=== PATIENT | male | born 1960 | race Caucasian/White ===

== ENCOUNTER 2018-07-15 16:56 | Inpatient (IN) | payer MEDICARE, MEDICAID ==
[~2018-07-15] VITALS: Ht 180.3 cm; Wt 68.9 kg
--- NOTE | 2018-07-15 17:45 | NUR ---
PT BIB PA SENT BY DR GUTIERREZ FOR ASSESSMENT OF ALTERED MENTAL STATUS FOR UNKNOWN PERIOD OF TIME, WITH REPORTS OF RECURRENT UTI'S. CURRENTLY HAS NO PHYSICAL COMPLAINTS. CALM, COOPERATIVE. A/OX2 PRESENTLY. RESP EVEN UNLABORED. SKIN WARM DRY. IN ER BED 02.
[2018-07-15] MEDS ORDERED: SENN-168 PO (17:56)
[2018-07-15] MEDS ORDERED: ATOR10TA PO (17:56)
[2018-07-15] MEDS ORDERED: GABA-532 PO (17:56)
[2018-07-15] MEDS ORDERED: NA P133E RC (17:56)
[2018-07-15] MEDS ORDERED: DIVA-78 PO (17:56)
[2018-07-15] MEDS ORDERED: SPIR25TA PO (17:56)
[2018-07-15] MEDS ORDERED: ACET325T53 PO (17:56)
[2018-07-15] MEDS ORDERED: DOCU100C36 PO (17:56)
[2018-07-15] MEDS ORDERED: BISA10SU61 RC (17:56)
[2018-07-15] MEDS ORDERED: VITA1TAB18 PO (17:56)
[2018-07-15] MEDS ORDERED: OLAN10TA3 PO (17:56)
[2018-07-15] MEDS ORDERED: MAGN400O6 PO (17:56)
[2018-07-15] MEDS ORDERED: CYPR4TAB44 PO (17:56)
[2018-07-15] MEDS ORDERED: LISI2.5T2 PO (17:56)
[2018-07-15] MEDS ORDERED: OMEG1CAP PO (17:56)
[2018-07-15] MEDS ORDERED: LEVE100S PO (17:56)
[2018-07-15] MEDS ORDERED: RISP3TAB5 PO (17:56)
[2018-07-15] MEDS ORDERED: CHOL100044 PO (17:56)
[2018-07-15] MEDS ORDERED: LORA-259 PO (17:56)
[2018-07-15] MEDS ORDERED: LIDOCAINE 2% JEL UROJET 10 ML MM ONE ×2 (17:58→18:00)
[2018-07-15 18:06] LABS: BASOPHILS % (AUTO) 0.5 % (0.0-2.0); EOSINOPHILS % (AUTO) 2.7 % (0.0-6.0); HEMATOCRIT 40 % (39-51); HEMOGLOBIN 12.6 g/dL (13.5-17.5); LYMPHOCYTES % (AUTO) 34.8 % (20.0-44.0); MEAN CORPUSCULAR HGB CONC 31 g/dl (31.0-36.0); MEAN CORPUSCULAR VOLUME 71 fL (80-96); MONOCYTES # (AUTO) 0.5 /CMM (0.1-1.30); MONOCYTES % (AUTO) 9.2 % (2.0-12.0); NEUTROPHILS # (AUTO) 2.9 /CMM (1.8-8.9); NEUTROPHILS % (AUTO) 52.8 % (43.0-81.0); PLATELET COUNT (AUTO) 224 /CMM (150-450); RDW COEFFICIENT OF VARIATION 14.1 (11.5-15.0); WHITE BLOOD COUNT (AUTO) 5.6 K/uL (4.3-11.0)
[2018-07-15 18:28] LABS: TROPONIN I < 0.017 ng/mL (0.00-0.056)
[2018-07-15 18:36] LABS: ALANINE AMINOTRANSFERASE 14 U/L (12-78); ALBUMIN 3.3 g/dL (3.4-5.0); ALKALINE PHOSPHATASE 49 U/L (46-116); ASPARTATE AMINOTRANSFERASE 5 U/L (15-37); BILIRUBIN,TOTAL 0.2 mg/dL (0.2-1.0); CARBON DIOXIDE 29 mmol/L (21-32); CHLORIDE 104 mmol/L (98-107); CREATININE 0.9 mg/dL (0.6-1.3); GLUCOSE 97 mg/dL (74-106); POTASSIUM 4.5 mmol/L (3.5-5.1); SODIUM SERUM 139 mmol/L (136-145); TOTAL PROTEIN, SERUM 7.6 g/dL (6.4-8.2); UREA NITROGEN, BLOOD 21 mg/dL (7-18)
--- NOTE | 2018-07-15 18:49 | NUR ---
RESTING QUIETLY, NAD NOTED, ALL NEEDS ATTENDED TO.
[2018-07-15 18:57] LABS: APPEARANCE,URINE Cloudy (CLEAR); BILIRUBIN,URINE Negative (NEGATIVE); BLOOD, URINE Trace-lysed Ery/uL (NEGATIVE); COLOR,URINE Yellow (YELLOW); KETONES,URINE Trace (NEGATIVE); LEUKOCYTE ESTERASE ,URINE Large (NEGATIVE); NITRITE, URINE Negative (NEGATIVE); PH,URINE 6.5 (5.0-8.0); PROTEIN,URINE Negative (NEGATIVE); UGLUCOSE Negative (NEGATIVE); UROBILINOGEN,URINE 0.2 EU/dL (0.2)
[2018-07-15 19:03] LABS: BACTERIA,URINE Many /HPF (None Seen); RBC,URINE 0-2 /HPF (0-2); SQUAMOUS EPITHELIAL CELL,UR Few /HPF (None Seen); WBC,URINE TOO NUMEROUS TO COUN /HPF (0-3)
[2018-07-15] MEDS ORDERED: LEVOFLOXACIN 750 MG /D5W 150ML 750 MG in PREMIX 1 EA IV SCH (19:30)
--- NOTE | 2018-07-15 19:38 | NUR ---
CALLED NURSING AND REQUESTED A MED SURG BED
--- NOTE | 2018-07-15 19:42 | NUR ---
REPORT GIVEN TO JACKIE HENDRICKSON FOR BUNNY
[2018-07-15] MEDS ORDERED: LEVOFLOXACIN 750 MG /D5W 150ML 150 ML IV ONE (20:16)
--- NOTE | 2018-07-15 20:16 | NUR ---
PT IS ASSIGNED TO MED SURG RM#: [id number], DX: ISREAL, AND ACCEPTING: DR GUTIERREZ.
--- NOTE | 2018-07-15 20:43 | NUR ---
REPORT GIVEN TO GRISEL HENDRICKSON FOR CONTINUATION OF CARE.
[2018-07-15 21:30] VITALS: BP 97/70
[2018-07-15] MEDS ORDERED: ACETAMINOPHEN 650 MG/SUPP.RECT RC PRN (22:00)
[2018-07-15] MEDS ORDERED: ONDANSETRON HCL/PF 4 MG/2 ML VIAL IV PRN (22:00)
[2018-07-15] MEDS ORDERED: ACETAMINOPHEN 325 MG TABLET PO PRN (22:00)
[2018-07-15] MEDS: IV D5/ 0.9% NACL 1,000 ML IV SCH (22:19)
--- NOTE | 2018-07-16 07:10 | NUR ---
MS/RN OPENING NOTE PATIENT IS RECEIVED IN BED AWAKE. ALERT AND ORIENTED X1. DENIES SOB. RESPIRATION REGULAR AND UNLABORED. DENIES PAIN. PATIENT IN NO APPARENT DISTRESS. RIGHT ARM G 22 PATENT AND IV FLUID INFUSING AT 100ML/HR. NO S/S INFILTRATION NOTED. BED LOW AND LOCKED. SIDE RAILS UP X3. CALL LIGHT WITHIN REACH. WILL CONTINUE TO MONITOR.
[2018-07-16 07:43] LABS: BASOPHILS % (AUTO) 0.2 % (0.0-2.0); EOSINOPHILS % (AUTO) 3.9 % (0.0-6.0); HEMATOCRIT 37 % (39-51); HEMOGLOBIN 11.6 g/dL (13.5-17.5); LYMPHOCYTES # (AUTO) 1.8 /CMM (0.8-4.8); MEAN CORPUSCULAR HGB CONC 31 g/dl (31.0-36.0); MEAN CORPUSCULAR VOLUME 73 fL (80-96); MONOCYTES # (AUTO) 0.6 /CMM (0.1-1.30); NEUTROPHILS % (AUTO) 53.9 % (43.0-81.0); PLATELET COUNT (AUTO) 178 /CMM (150-450); RDW COEFFICIENT OF VARIATION 15.5 (11.5-15.0); RED BLOOD CELL COUNT(AUTO) 5.05 MIL/uL (4.5-6.0); WHITE BLOOD COUNT (AUTO) 5.5 K/uL (4.3-11.0)
[2018-07-16 07:50] LABS: CALCIUM, SERUM 8.3 mg/dL (8.5-10.1); CREATININE 0.9 mg/dL (0.6-1.3); PHOSPHORUS 2.7 mg/dL (2.5-4.9); POTASSIUM 3.9 mmol/L (3.5-5.1)
[2018-07-16] MEDS: PANTOPRAZOLE 40 MG TABLET.DR PO SCH (07:55)
[2018-07-16 08:00] VITALS: BP 116/70
[2018-07-16] MEDS: IV D5/ 0.9% NACL 1,000 ML IV SCH ×2 (08:03→17:47)
[2018-07-16] MEDS: ENOXAPARIN SODIUM 40 MG/0.4 ML DISP.SYRIN SQ SCH (09:58)
--- NOTE | 2018-07-16 12:08 | NUR ---
MS/RN NOTE ASKED DR GUTIERREZ TO CHANGE THE DIET ORDER FROM MECHANICAL SOFT TO PUREED DIET DUE TO PATIENT HAVING NO TEETH AND PREVENTING ASPIRATION. RECEIVED NEW ORDER FOR PUREED DIET. THE ORDER IS READ BACK, VERIFIED. NOTED AND CARRIED OUT.
[2018-07-16] MEDS ORDERED: Medication Not On Formulary EA (Omega-3 Fatty Acids/Fish Oil (Fish Oil 1,000 Mg Capsule) PO SCH (12:30)
[2018-07-16] MEDS ORDERED: MAGNESIUM HYDROXIDE 30 ML UDC PO PRN (12:30)
[2018-07-16] MEDS ORDERED: BISACODYL SUPP (10 MG) 10 MG/SUPP.RECT SUPP.RECT RC PRN (12:30)
[2018-07-16] MEDS ORDERED: NA PHOS,M-B/NA PHOS,DI-BA 1 EA ENEMA RC PRN (12:30)
[2018-07-16] MEDS ORDERED: ACETAMINOPHEN 325 MG TABLET PO PRN (12:30)
[2018-07-16 12:33] LABS: IRON, SERUM 108 ug/dl (50-175); TOTAL IRON BINDING CAPACITY 209 ug/dl (250-450)
[2018-07-16] MEDS: GABAPENTIN 100 MG CAPSULE PO SCH ×2 (13:19→16:49)
[2018-07-16] MEDS: DIVALPROEX SODIUM 125 MG TABLET.DR PO SCH ×2 (13:20→16:49)
--- NOTE | 2018-07-16 13:29 | NUR ---
MS/RN NOTE PERIACTIN 4MG DELIVERED YET. FOLLOW UP CALL TO PHARMACY IS MADE. WILL CONTINUE TO FOLLOW UP AND ADMINISTER ONCE THE MEDICATION IS DELIVERED.
[2018-07-16 14:00] VITALS: BP 126/70
[2018-07-16] MEDS: CYPROHEPTADINE HCL 4 MG TABLET PO SCH ×2 (15:57→16:50)
[2018-07-16 15:59] VITALS: BP 100/65
[2018-07-16] MEDS: SENNOSIDES 8.6 MG TABLET PO SCH (16:49)
[2018-07-16] MEDS: LORAZEPAM 0.5 MG TABLET PO SCH (16:50)
--- NOTE | 2018-07-16 18:45 | NUR ---
MS/RN CLOSING NOTE PATIENT ALERT AND ORIENTED X1. REDIRECTION AND REORIENTATION PROVIDED NEEDED. DENIES SOB. RESPIRATION REGULAR AND UNLABORED. DENIES PAIN. PATIENT IN NO APPARENT DISTRESS. RIGHT FOREARM G 20 PATENT AND IV FLUID INFUSING WITH NO S/S INFILTRATION. LEFT FOREARM G 24 PATENT AND SALINE LOCKED. BED LOW AND LOCKED. SIDE RAILS UP X3. BED ALARM ON. WILL CONTINUE TO MONITOR.
[2018-07-16 20:00] VITALS: BP 95/56
--- NOTE | 2018-07-16 20:00 | NUR ---
MS ANIMAL ANATOMY TEACHER NOTES RECEIVED REPORT WHILE DOING ROUNDS AND SEEN PT RESTING AT THIS TIME WITH EYES CLOSED BUT AROUSE TO TOUCH, NO SIGNS OF ANY ACUTE DISTRESS NOTED. RESPIRATION EVEN AND NON-LABORED WITH IVF OF D5NS AT 100ML/HR INFUSING ON HIS RIGHT FOREARM COVERED WITH KERLIX. SKIN WARM AND DRY TOUCH HIM WARM AND COMFORTABLE AT ALL TIMES. BED ALARM SET FOR SAFETY AND PLACE CALL LIGHT AT REACH. WILL CONTINUE TO MONITOR.
[2018-07-16] MEDS: risperiDONE 1 MG TABLET PO SCH (21:17)
[2018-07-16] MEDS: LEVETIRACETAM SOL (5 ML) 100 MG/ML UDC PO SCH (21:17)
[2018-07-16] MEDS: LISINOPRIL (5MG) 5 MG TABLET PO SCH (21:18)
[2018-07-16] MEDS: ATORVASTATIN 10 MG TABLET PO SCH (21:22)
[2018-07-16] MEDS: MUPIROCIN OINT 2% 22 GM TUBE SCH (21:23)
--- NOTE | 2018-07-16 22:00 | NUR ---
MS LIVESTOCK LABORER NOTES SEEN PT COVERED HIS FACE WITH A BLANKET AND BUT WHEN YOU CALLED HIS NAME AND ASKED HIM TO OPEN IT HE FOLLOWED INSTRUCTION BUT NOTICED NEEDS TO RE-ORIENTED WHERE HE AT WHAT MEDICATION THAT I WILL GIVE IT TO HIM. PT JUST LOOKED AT ME AND HE SCREAM LIKE A LITTLE BOY BUT HE TOOK HIS MEDICATION WITH APPLE SAUCE AND DRINK WITH WATER. PT TOLERATED WELL NO ASPIRATION NOTED. AFTER THAT HE COVERED HIS FACE AGAIN WITH BLANKET . KEPT HIM ON SMEI FOWLERS POSITION WITH SIDE RAILS UP. BED ALARM SET FOR SAFETY.
[2018-07-16] MEDS: LEVOFLOXACIN 750 MG /D5W 150ML 750 MG in PREMIX 1 EA IV SCH (22:25)
--- NOTE | 2018-07-17 | NUR ---
CONTINUITY MANAGER NOTES PT SLEEPING COMFORTABLY IN BED WITHOUT ANY ACUTE DISTRESS NOTED. IVF STILL INFUSING. WILL CONTINUE MONITORING.
[2018-07-17] MEDS: IV D5/ 0.9% NACL 1,000 ML IV SCH ×2 (05:12→16:02)
--- NOTE | 2018-07-17 05:25 | NUR ---
RESTORATION ECOLOGIST NOTES PT REMAINS RESTING , RESPIRATION EVEN AND NON -LABORED. NOT IN ANY ACUTE DISTRESS NOTED. WILL CONTINUE MONITORING. PLACE CALL LIGHT AT REACH.
[2018-07-17 07:17] LABS: BASOPHILS % (AUTO) 0.2 % (0.0-2.0); HEMATOCRIT 35 % (39-51); HEMOGLOBIN 11.3 g/dL (13.5-17.5); LYMPHOCYTES # (AUTO) 2.1 /CMM (0.8-4.8); MEAN CORPUSCULAR HGB CONC 33 g/dl (31.0-36.0); MEAN CORPUSCULAR VOLUME 70 fL (80-96); MONOCYTES # (AUTO) 0.5 /CMM (0.1-1.30); MONOCYTES % (AUTO) 11.7 % (2.0-12.0); NEUTROPHILS # (AUTO) 1.9 /CMM (1.8-8.9); NEUTROPHILS % (AUTO) 40.1 % (43.0-81.0); PLATELET COUNT (AUTO) 151 /CMM (150-450); RED BLOOD CELL COUNT(AUTO) 4.92 MIL/uL (4.5-6.0); WHITE BLOOD COUNT (AUTO) 4.7 K/uL (4.3-11.0)
--- NOTE | 2018-07-17 07:19 | NUR ---
MS RN OPENING NOTES RECEIVED PATIENT ASLEEP IN BED, EASILY AWAKENS. HOB ELEVATED. ON ROOM AIR, BREATHING EVEN AND UNLABORED. IV ACCESS ON LEFT FA INTACT AND PATENT, IVF OF D5 NS @ 100MLNO SIGNS OF REDNESS OR INFILTRATIONS AT SITE NOTED. BED IN LOW/LOCKED POSITION WITH SR UP X2. CALL LIGHT IN REACH. WILL CONTINUE TO MONITOR.
[2018-07-17 07:23] LABS: CALCIUM, SERUM 8.2 mg/dL (8.5-10.1); CREATININE 0.9 mg/dL (0.6-1.3); POTASSIUM 4.4 mmol/L (3.5-5.1)
--- NOTE | 2018-07-17 07:23 | NUR ---
MS ESTIMATING MANAGER CLOSING NOTES PT REMAINS SLEEPING BUT AROUSABLE TO TOUCH. IVF STILL INFUSING ON HIS LEFT FOREARM PATENT AND INTACT. NOS NO SIGNS OF ANY ACUTE DISTRESS NOTED. ALL DUE MEDS GIVEN AND ALL NEEDS MET. STABLE ROBYN THE NIGHT AND SLEPT WELL. KEPT HIM WARM AND COMFORTABLE AT ALL TIMES. BED ALARMS SET FOR PT SAFETY. ENDORSE TO AM NURSE FOR CONTINUITY OF CARE. PLACE CALL LIGHT AT REACH.
[2018-07-17] MEDS: PANTOPRAZOLE 40 MG TABLET.DR PO SCH (07:55)
[2018-07-17] MEDS: LEVETIRACETAM SOL (5 ML) 100 MG/ML UDC PO SCH ×2 (08:25→21:58)
[2018-07-17] MEDS: DIVALPROEX SODIUM 125 MG TABLET.DR PO SCH ×3 (08:25→16:28)
[2018-07-17] MEDS: DOCUSATE SODIUM 100 MG CAPSULE PO SCH (08:25)
[2018-07-17] MEDS: GABAPENTIN 100 MG CAPSULE PO SCH ×3 (08:25→16:28)
[2018-07-17] MEDS: CHOLECALCIFEROL 1,000 UNIT TABLET (VIT D3) PO SCH (08:25)
[2018-07-17] MEDS: ENOXAPARIN SODIUM 40 MG/0.4 ML DISP.SYRIN SQ SCH (08:26)
[2018-07-17 08:29] VITALS: BP 114/68
[2018-07-17] MEDS: CYPROHEPTADINE HCL 4 MG TABLET PO SCH ×3 (08:31→16:29)
[2018-07-17] MEDS: SENNOSIDES 8.6 MG TABLET PO SCH ×2 (08:31→16:28)
[2018-07-17] MEDS: MUPIROCIN OINT 2% 22 GM TUBE SCH ×2 (08:31→22:13)
[2018-07-17] MEDS: LORAZEPAM 0.5 MG TABLET PO SCH ×2 (08:31→16:28)
[2018-07-17] MEDS: OLANZAPINE 5 MG TABLET PO SCH (08:32)
[2018-07-17] MEDS: VITAMIN B COMP W-C 1 TAB TABLET PO SCH (08:32)
[2018-07-17] MEDS: SPIRONOLACTONE 25 MG TABLET PO SCH (08:32)
[2018-07-17 08:50] LABS: EOSINOPHILS % (MANUAL) 4 % (0-4); LYMPHOCYTES % (MANUAL) 48 % (16-48); MONOCYTES % (MANUAL) 12 % (0-11.0); NEUTROPHILS % (MANUAL) 36 (42-76)
[2018-07-17 16:09] VITALS: BP 96/57
--- NOTE | 2018-07-17 18:38 | NUR ---
MS RN CLOSING NOTES PATIENT AWAKE IN BED AND LYING AT MODERATE HIGH BACKREST POSITION AT THIS TIME. A/O X2. ABLE TO RESPOND VERBALLY AND OBEYS COMMANDS. NO SIGNIFICANT CHANGES IN STATUS NOTED THROUGHOUT THE DAY. ON ROOM AIR, TOLERATING WELL WITH NO SOB NOTED. IV ACCESS ON LEFT FA INTACT AND PATENT, IVF OF D5 NS @ 50 ML/HR INFUSING WELL, NO SIGNS OF REDNESS OR INFILTRATIONS AT SITE NOTED. ALL SAFETY MEASURES KEPT IN LACE. BED IN LOW/LOCKED POSITION WITH SR UP X2. CALL LIGHT IN REACH. ALL NEEDS AND CARE PROVIDED WELL. WILL ENDORSE TO BILLET BED OPERATOR NURSE FOR BUNNY.
[2018-07-17] MEDS: LEVOFLOXACIN 750 MG /D5W 150ML 750 MG in PREMIX 1 EA IV SCH (19:32)
--- NOTE | 2018-07-17 19:40 | NUR ---
RN INITIAL NOTES: RECEIVED REPORT FROM ANGEL HENDRICKSON. PT IN BED, AWAKE, A/O X1-2 ON RA RESPIRATION EVEN AND UNLABORED, NO FACIAL GRIMACE NOTED, IV ACCESS PATENT AND FLUSHING WELL INFUSING WITH D5NS AT 50ML/HR. BLE OFFLOADED. SUCTION SET UP SECURED, KEPT SIDE RAILS PADDED, PT ON SEIZURE PRECAUTION, SAFETY PRECAUTIONS FOR FALL INITIATED, CALL LIGHT IN REACH, WILL CONTINUE MONITORING PT.
[2018-07-17 20:00] VITALS: BP 100/63
--- NOTE | 2018-07-17 20:25 | NUR ---
RN NOTES: ASSISTED HOLTER TECHNICIAN IN CHANGING PT'S DIAPER, ASSESSED PT'S SKIN AND COCCYX AREA, NOTED POSSIBLE DTI BUT WITH INTACT SKIN, NOTED ABRASION, PT SKINNY/BONY, WASHED COCCYX AREA WITH SOAP AND PAT PAT DRY Z GUARD AND MEPILEX APPLIED, WILL ORDER [facility] MATTRESS.
[2018-07-17] MEDS: risperiDONE 1 MG TABLET PO SCH (21:58)
[2018-07-17] MEDS: ATORVASTATIN 10 MG TABLET PO SCH (21:59)
[2018-07-17] MEDS: LISINOPRIL (5MG) 5 MG TABLET PO SCH (22:00)
[2018-07-17 22:18] VITALS: BP 101/72
--- NOTE | 2018-07-18 | NUR ---
RN NOTES: NOTED ADMISSION PAPER WORKS/CHARTING/DOCUMENTATION WASN'T COMPLETED BY THE ADMITTING RN, INFORMED ACCOUNTS RECEIVABLE REPRESENTATIVE JOHANA, PER AUTO LOCATOR, IT NEEDS TO BE COMPLETED. COMPLETED ADMIT DOCUMENTATION, USING ALL PAPER WORKS OBTAINED FROM FACILITY
[2018-07-18] MEDS: Z GUARD REMEDY 4 OZ OINT TP PRN ×2 (05:47→20:30)
--- NOTE | 2018-07-18 06:32 | NUR ---
RN CLOSING NOTES: PT IN BED, AWAKE, REMAINS A/O X1-2, ON RA, NO EPISODE OF SEIZURE NOTED, DENIES ANY PAIN OR DIsCOMFORT AT THIS TIME. PT NOTED TO BE INTERMITTENTLY AGRRESSIVE, BUT CAN BE REDIRECTED. IV ACCESS ON LEFT FA REMAINS PATENT AND FLUSHING WELL, INFUSING WITH D5NS AT 50ML/HR. AWAITING DELIVERY OF [facility], WOUND CARE CONSULTED, VS REMAINS STABLE, NEEDS ATTENDED. BED ALARM SECURED, SAFETY PRECAUTIONS FOR FALL REMAINS ENGAGED, CALL LIGHT IN REACH, WILL ENDORSE TO DAY RN FOR BUNNY.
--- NOTE | 2018-07-18 07:20 | NUR ---
MS RN OPENING NOTE RECEIVED PATIENT IN BED. ALERT ORIENTED X1. ON ROOM AIR. TOLERATING WELL. IN NO APPARENT DISTRESS OR DISCOMFORT AT THIS TIME. RESPIRATIONS EVEN AND UNLABORED. DENIES PAIN AND SOB. PATIENT ABLE TO ANSWER TO BASIC QUESTIONS. IS INCONTINENT WITH USE OF DIAPER. ISOLATION PRECAUTIONS OBSERVED AT THE DOOR. SEIZURE PRECAUTIONS OBSERVED. LEFT FOREARM 24G IVC WITH FLUIDS RUNNING AT 50CC/HR. PATIENT KEPT CLEAN AND COMFORTABLE. ALL NEEDS ATTENDED. SAFETY MEASURES IN PLACE, BED IN LOW LOCKED POSITION, ALARM ON, SIDE RAILS UP X3, CALL LIGHT WITHIN EASY REACH. WILL CONTINUE TO MONITOR.
[2018-07-18 08:00] VITALS: BP 105/66
[2018-07-18] MEDS: GABAPENTIN 100 MG CAPSULE PO SCH ×3 (09:24→16:48)
[2018-07-18] MEDS: ENOXAPARIN SODIUM 40 MG/0.4 ML DISP.SYRIN SQ SCH (09:25)
[2018-07-18] MEDS: LEVETIRACETAM SOL (5 ML) 100 MG/ML UDC PO SCH ×2 (09:28→20:23)
[2018-07-18] MEDS: DOCUSATE SODIUM 100 MG CAPSULE PO SCH (09:46)
[2018-07-18] MEDS: SPIRONOLACTONE 25 MG TABLET PO SCH (09:54)
[2018-07-18] MEDS: SENNOSIDES 8.6 MG TABLET PO SCH ×2 (09:54→16:48)
[2018-07-18] MEDS: VITAMIN B COMP W-C 1 TAB TABLET PO SCH (09:54)
[2018-07-18] MEDS: DIVALPROEX SODIUM 125 MG TABLET.DR PO SCH ×3 (09:55→16:48)
[2018-07-18] MEDS: CHOLECALCIFEROL 1,000 UNIT TABLET (VIT D3) PO SCH (09:55)
[2018-07-18] MEDS: OLANZAPINE 5 MG TABLET PO SCH (09:55)
[2018-07-18] MEDS: PANTOPRAZOLE 40 MG TABLET.DR PO SCH (09:55)
[2018-07-18] MEDS: LORAZEPAM 0.5 MG TABLET PO SCH ×2 (09:56→16:48)
[2018-07-18] MEDS: CYPROHEPTADINE HCL 4 MG TABLET PO SCH ×3 (09:58→16:48)
[2018-07-18] MEDS: MUPIROCIN OINT 2% 22 GM TUBE SCH ×2 (09:58→20:31)
[2018-07-18 16:00] VITALS: BP 111/68
--- NOTE | 2018-07-18 19:02 | NUR ---
MS RN CLOSING NOTE PATIENT IN BED. ALERT ORIENTED X1. ON ROOM AIR. TOLERATING WELL. IN NO APPARENT DISTRESS OR DISCOMFORT AT THIS TIME. RESPIRATIONS EVEN AND UNLABORED. DENIES PAIN AND SOB. PATIENT ABLE TO ANSWER TO BASIC QUESTIONS. IS INCONTINENT WITH USE OF DIAPER. ISOLATION PRECAUTIONS OBSERVED AT THE DOOR. SEIZURE PRECAUTIONS OBSERVED. LEFT FOREARM 24G IVC WITH FLUIDS RUNNING AT 50CC/HR. PATIENT KEPT CLEAN AND COMFORTABLE. ALL ORDERS RENDERED. ALL NEEDS ATTENDED. SAFETY MEASURES IN PLACE, BED IN LOW LOCKED POSITION, ALARM ON, SIDE RAILS UP X3, CALL LIGHT WITHIN EASY REACH. WILL ENDORSE TO PM NURSE FOR BUNNY.
--- NOTE | 2018-07-18 19:50 | NUR ---
RN INITIAL NOTES: RECEIVED REPORT FROM OSVALDO HENDRICKSON. PT IN BED, AWAKE, CONFUSED, A/O X1, ON RA RESPIRATION EVEN AND UNLABORED. PT ON MRSA NARES ISOLATION AND VRE HISTORY. PT PULLED OUT HIS IV ACCESS, WILL INSERT ANOTHER ONE AFTER REPORT CHANGE, ON SEIZURE PRECAUTIONS, ASPIRATION PRECAUTIONS, KEPT SIDE RAILS PADDED AND SUCTION SET UP SECURED, PT NOW ON [facility] MATTRESS, BLE OFFLOADED. SAFETY PRECAUTIONS FOR FALL INITIATED, CALL LIGHT IN REACH, WILL CONTINUE MONITORING PT.
[2018-07-18 20:00] VITALS: BP 105/66
[2018-07-18] MEDS ORDERED: LEVOFLOXACIN (750 MG) 750 MG TABLET PO SCH (20:00)
--- NOTE | 2018-07-18 20:30 | NUR ---
RN NOTES: RESTARTED NEW IV ACCESS ON RFA G 22, WITH GOOD BLOOD RETURN NOTED, SURED WITH TEGADERM AND PROPERLY LABELED.
[2018-07-18] MEDS: ATORVASTATIN 10 MG TABLET PO SCH (21:30)
[2018-07-18] MEDS: risperiDONE 1 MG TABLET PO SCH (21:30)
[2018-07-18 21:47] VITALS: BP 119/48
[2018-07-18] MEDS: LISINOPRIL (5MG) 5 MG TABLET PO SCH (21:47)
--- NOTE | 2018-07-19 06:30 | NUR ---
RN NOTES: SONYA ANTHONY AND ASSIGNED RN PROVIDED BED BATH TO THE PT FOR THE 4TH TIME PT PLAYED WITH HIS BOWEL MOVEMENT. SACRAL COCCYX AREA APPLIED WITH Z GUARD AND MEPILEX.
--- NOTE | 2018-07-19 06:37 | NUR ---
RN NOTES: STARTED NEW IV ACCESS ON RIGHT WRIST USING G24, PT PULLED OUT AGAIN HIS PREVIOUS IV. GOOD BLOOD RETURN NOTED. NEW IV ACCESS SECURED WITH CLEAR TEGADERM DRESSING WITH PROPER LABELS. COVERED WITH KERLIX AND BROWN SLEEVE. PT ALSO HAS TOTAL OF 4 EPISODE OF SOFT MUSHY BM, NOT LIQUID OR LOOSE.
--- NOTE | 2018-07-19 06:43 | NUR ---
RN CLOSING NOTES: PT IN BED, SLEEPING, REMAINS A/O X1-2, ON RA, ,NO FACIAL GRIMACE NOTED, APPEARS CALM AND COMFORTABLE, NO EPISODE OF SEIZURE NOTED. PT CAN BE REDIRECTED. IV ACCESS ON RIGHT WRIST REMAINS PATENT AND FLUSHING WELL, ON HL, COVERED WITH KERLIX FOR SAFETY. FOR WOUND CARE CONSULT, VS REMAINS STABLE, NEEDS ATTENDED. BED ALARM SECURED, SAFETY PRECAUTIONS FOR FALL REMAINS ENGAGED, CALL LIGHT IN REACH, WILL ENDORSE TO DAY RN FOR BUNNY.
--- NOTE | 2018-07-19 07:20 | NUR ---
MS RN OPENING NOTE RECEIVED PATIENT IN BED. ALERT ORIENTED X1. ON ROOM AIR. TOLERATING WELL. IN NO APPARENT DISTRESS OR DISCOMFORT AT THIS TIME. RESPIRATIONS EVEN AND UNLABORED. DENIES PAIN AND SOB. PATIENT ABLE TO ANSWER TO BASIC QUESTIONS. IS INCONTINENT WITH USE OF DIAPER. ISOLATION PRECAUTIONS OBSERVED AT THE DOOR. SEIZURE PRECAUTIONS OBSERVED. RIGHT WRIST 24G IVC SL, PATENT AND INTACT. PATIENT KEPT CLEAN AND COMFORTABLE. ALL NEEDS ATTENDED. SAFETY MEASURES IN PLACE, BED IN LOW LOCKED POSITION, ALARM ON, SIDE RAILS UP X3, CALL LIGHT WITHIN EASY REACH. WILL CONTINUE TO MONITOR.
[2018-07-19 08:00] VITALS: BP 110/61
[2018-07-19] MEDS: CYPROHEPTADINE HCL 4 MG TABLET PO SCH ×2 (08:59→13:15)
[2018-07-19] MEDS: DIVALPROEX SODIUM 125 MG TABLET.DR PO SCH ×2 (08:59→13:15)
[2018-07-19] MEDS: CHOLECALCIFEROL 1,000 UNIT TABLET (VIT D3) PO SCH (09:00)
[2018-07-19] MEDS: SENNOSIDES 8.6 MG TABLET PO SCH (09:00)
[2018-07-19] MEDS: LORAZEPAM 0.5 MG TABLET PO SCH (09:00)
[2018-07-19] MEDS: GABAPENTIN 100 MG CAPSULE PO SCH ×2 (09:01→13:15)
[2018-07-19] MEDS: OLANZAPINE 5 MG TABLET PO SCH (09:01)
[2018-07-19] MEDS: DOCUSATE SODIUM 100 MG CAPSULE PO SCH (09:01)
[2018-07-19] MEDS: VITAMIN B COMP W-C 1 TAB TABLET PO SCH (09:01)
[2018-07-19] MEDS: SPIRONOLACTONE 25 MG TABLET PO SCH (09:02)
[2018-07-19] MEDS: LEVETIRACETAM SOL (5 ML) 100 MG/ML UDC PO SCH (09:02)
[2018-07-19] MEDS: ENOXAPARIN SODIUM 40 MG/0.4 ML DISP.SYRIN SQ SCH (09:07)
[2018-07-19] MEDS: PANTOPRAZOLE 40 MG TABLET.DR PO SCH (09:09)
[2018-07-19] MEDS: MUPIROCIN OINT 2% 22 GM TUBE SCH (09:20)
--- NOTE | 2018-07-19 13:00 | NUR ---
PATIENT IN BED, SLEEPING, AROUSED WITH VERBAL STIMULI BUT IS SOMNOLENT, WAS ABLE TO WAKE HIM UP FOR SHORT PERIOD OF TIME AND ADMINISTER SCHEDULED MEDICATIONS. PATIENT IMMEDIATELY WENT BACK TO SLEEP. VITAL SIGNS STABLE. WILL CONTINUE TO MONITOR.
--- NOTE | 2018-07-19 15:20 | NUR ---
GAVE REPORT TO ANUP AT [facility]. PATIENT WILL BE ADMITTED TO ROOM 18B. AWAITING FOR TRANSPORTATION AT THIS TIME.
[2018-07-19 16:00] VITALS: BP 105/54
--- NOTE | 2018-07-19 16:00 | NUR ---
MS TAG STRINGER NOTE RECEIVED ORDER FOR DISCHARGE FROM DR GUTIERREZ. PATIENT IS BEING DISCHARGED TO [facility]. PATIENT IS STABLE. VITAL SIGNS STABLE. SLEEPING. AROUSED WITH VERBAL STIMULI WITH BRIEF EYE OPENING. PATIENT IS SLEEPY. NODES WHEN ASKED QUESTIONS. EXITCARE COMPLETED AND PRINTED. UNABLE TO PROVIDE DISCHARGE INSTRUCTIONS AND MEDICATION INSTRUCTIONS TO PATIENT PATIENT IS INCAPABLE OF LEARNING. PATIENTS HAS NO VALUABLES WITH HIM. VERIFIED AND SIGNED ALL DISCHARGE PAPERWORK WITH CANDI HENDRICKSON. KINSEY PLACED IN CHART. SKIN CHECKED, PICTURED TAKEN PLACED IN CHART. PATIENT WAS CLEAN, AND MADE COMFORTABLE. ALL DUE MEDICATIONS WERE ADMINISTERED, NEEDS ATTENDED DURING PATIENT'S STAY. IV SITE REMOVED, TIP INTACT. ID BAND REMOVED. PATIENT LEF THE UNIT VIA AMBULANCE AT 1600.
--- NOTE | 2018-07-20 20:39 | NUR ---
CALLED [facility] TO INFORM STAFF OF PT'S POSITIVE CULTURE. PER LAB, PT IS POSITIVE FOR GRAM + RODS. INFORMATION FAXED OVER TO [facility] JOSE ANTONIO AT [phone]. MADE AWARE
== END 2018-07-19 16:00 | DRG 871 ==
LOC: ER 17:02 → MED 21:25
PROVIDERS: ADMIT Legal Medicine; ATTEND Legal Medicine
DX: A41.9 Sepsis, unspecified organism (principal); G93.41 Metabolic encephalopathy; N39.0 Urinary tract infection, site not specified; F03.90 Unspecified dementia, unspecified severity, without behavioral disturbance, psychotic disturbance, mood disturbance, and anxiety; J44.9 Chronic obstructive pulmonary disease, unspecified; N40.0 Benign prostatic hyperplasia without lower urinary tract symptoms; G40.909 Epilepsy, unspecified, not intractable, without status epilepticus; I10 Essential (primary) hypertension; E78.5 Hyperlipidemia, unspecified
CPT/HCPCS: 36415; 71045-TC; 80048-TC; 80076-TC; 81000-TC; 82962-TC; 83540-TC; 83605-TC; 83735-TC; 84100-TC; 84484-TC; 85025-TC; 85730-TC; 87040-TC; 87081-TC; 87086-TC; A4216; A4606; G0378; J1650; J1953; J1956; J3490; J7042; Z7610

== ENCOUNTER 2018-08-27 18:29 | Emergency (ER) | payer MEDICARE, MEDICAID ==
[~2018-08-27] VITALS: Ht 182.9 cm; Wt 77.1 kg
[~2018-08-27 18:29] MED LIST: ACET325T53 PO; ATOR10TA PO; BISA10SU61 RC; CHOL100044 PO; CYPR4TAB44 PO; DIVA-78 PO; DOCU100C36 PO; GABA-532 PO; LEVE100S PO; LISI2.5T2 PO; LORA-259 PO; MAGN400O6 PO; NA P133E RC; OLAN10TA3 PO; OMEG1CAP PO; RISP3TAB5 PO; SENN-168 PO; SPIR25TA PO; VITA1TAB18 PO
[2018-08-27] MEDS ORDERED: FERR325T23 PO (19:03)
[2018-08-27] MEDS ORDERED: RISP0.2515 PO (19:03)
--- NOTE | 2018-08-27 19:15 | NUR ---
ASSUMED CARE. PT YELLING, COMBATIVE, ATTEMPTED TO HIT AND KICK STAFF DURING BLOOD DRAW. ER MADE AWARE WITH ORDERS RECEIVED. WILL CARRY OUT ORDERS.
[2018-08-27] MEDS ORDERED: IV NS 0.9% 1,000 ML BAG IV ONE (19:30)
[2018-08-27] MEDS ORDERED: LORAZEPAM INJ 2 MG/ML VIAL ONE (19:34)
--- NOTE | 2018-08-27 19:40 | NUR ---
PT MEDICATED BY RN ORDERED.
[2018-08-27 19:47] LABS: BASOPHILS % (AUTO) 0.3 % (0.0-2.0); EOSINOPHILS % (AUTO) 1.6 % (0.0-6.0); HEMATOCRIT 42 % (39-51); HEMOGLOBIN 13.6 g/dL (13.5-17.5); LYMPHOCYTES # (AUTO) 1.9 /CMM (0.8-4.8); LYMPHOCYTES % (AUTO) 36.8 % (20.0-44.0); MEAN CORPUSCULAR HGB CONC 32 g/dl (31.0-36.0); MEAN CORPUSCULAR VOLUME 71 fL (80-96); MONOCYTES # (AUTO) 0.6 /CMM (0.1-1.30); NEUTROPHILS # (AUTO) 2.6 /CMM (1.8-8.9); NEUTROPHILS % (AUTO) 50.3 % (43.0-81.0); PLATELET COUNT (AUTO) 180 /CMM (150-450); RED BLOOD CELL COUNT(AUTO) 5.93 MIL/uL (4.5-6.0); WHITE BLOOD COUNT (AUTO) 5.2 K/uL (4.3-11.0)
[2018-08-27 20:00] LABS: CALCIUM, SERUM 8.6 mg/dL (8.5-10.1); CARBON DIOXIDE 30 mmol/L (21-32); CHLORIDE 104 mmol/L (98-107); CREATININE 1.2 mg/dL (0.6-1.3); GLUCOSE 103 mg/dL (74-106); POTASSIUM 4.4 mmol/L (3.5-5.1); SODIUM SERUM 141 mmol/L (136-145); UREA NITROGEN, BLOOD 19 mg/dL (7-18)
[2018-08-27] MEDS ORDERED: LORAZEPAM INJ 2 MG/ML VIAL IV ONE (20:00)
[2018-08-27 20:06] LABS: ALANINE AMINOTRANSFERASE 22 U/L (12-78); ALBUMIN 3.5 g/dL (3.4-5.0); ASPARTATE AMINOTRANSFERASE 10 U/L (15-37); BILIRUBIN,TOTAL 0.2 mg/dL (0.2-1.0); LIPASE 202 U/L (73-393); TOTAL PROTEIN, SERUM 7.5 g/dL (6.4-8.2)
[2018-08-27 20:22] LABS: ALKALINE PHOSPHATASE 47 U/L (46-116)
[2018-08-27 20:45] LABS: EOSINOPHILS % (MANUAL) 2 % (0-4); LYMPHOCYTES % (MANUAL) 45 % (16-48); MONOCYTES % (MANUAL) 12 % (0-11.0); NEUTROPHILS % (MANUAL) 41 (42-76)
--- NOTE | 2018-08-27 20:54 | NUR ---
CALLED [facility] FOR TRANSPORT ETA OF 4880 WAS GIVEN. TRIP#[id number]
--- NOTE | 2018-08-27 22:59 | NUR ---
CALLED [facility] FOR TRANSPORT UPDATED ETA OF 2330 WAS GIVEN.
--- NOTE | 2018-08-27 23:46 | NUR ---
IV removed. Catheter intact and site benign. Pressure and 4x4 applied to site. No bleeding noted. TRANSPORT AT BEDSIDE REPORT GIVEN TO EMT.
[2018-08-27 23:47] VITALS: BP 121/64
== END 2018-08-27 23:49 | disposition home or self-care (01) ==
LOC: ER 18:34
DX: G40.909 Epilepsy, unspecified, not intractable, without status epilepticus (principal); E86.0 Dehydration; F20.0 Paranoid schizophrenia; J44.9 Chronic obstructive pulmonary disease, unspecified; R64 Cachexia; N40.0 Benign prostatic hyperplasia without lower urinary tract symptoms; F41.9 Anxiety disorder, unspecified; Z88.0 Allergy status to penicillin; Z88.1 Allergy status to other antibiotic agents; Z88.6 Allergy status to analgesic agent
CPT/HCPCS: 36415; 80048; 80076; 83690; 84484; 85025; 96361; 96374; 99283; A4606; J2060; J7030; Z7610

== ENCOUNTER 2023-03-21 18:01 | Inpatient (IN) | payer MEDICARE, OTHER ==
[~2023-03-21] VITALS: Ht 172.7 cm; Wt 73.0 kg
[~2023-03-21 18:01] MED LIST changes: +FERR325T23 PO; -OMEG1CAP PO; +RISP0.2515 PO; -RISP3TAB5 PO; -SENN-168 PO; +SENN-261 PO
--- NOTE | 2023-03-21 18:15 | NUR ---
AFSHIN FROM [facility] FOR "EPISODES OF SCREAMING" AND REFUSING TO EAT. PT PUT TO BED PUT ON MONITOR, AOX1, PT IS MENTALLY DEFICIT PER HIS ANSWERS TO QUESTIONS.
--- NOTE | 2023-03-21 18:51 | NUR ---
MOVE SHEET SUBMITTED.
--- NOTE | 2023-03-21 19:26 | NUR ---
GAVE REPORT TO SALVADOR HENDRICKSON FOR BUNNY
--- NOTE | 2023-03-21 19:30 | NUR ---
EXTENSION SUPERVISOR AT BEDSIDE
--- NOTE | 2023-03-21 19:57 | NUR ---
URINE COLLECTED AND SENT TO LAB
[2023-03-21 20:01] LABS: BASOPHILS % (AUTO) 0.6 % (0.0-2.0); EOSINOPHILS % (AUTO) 2.8 % (0.0-6.0); HEMATOCRIT 41 % (39-51); HEMOGLOBIN 12.8 g/dL (13.5-17.5); LYMPHOCYTES # (AUTO) 2.1 K/uL (0.8-4.8); MEAN CORPUSCULAR HGB CONC 31 g/dl (31.0-36.0); MEAN CORPUSCULAR VOLUME 71 fL (80-96); MONOCYTES # (AUTO) 0.4 K/uL (0.1-1.30); MONOCYTES % (AUTO) 10.3 % (2.0-12.0); NEUTROPHILS # (AUTO) 1.7 K/uL (1.8-8.9); NEUTROPHILS % (AUTO) 39.3 % (43.0-81.0); PLATELET COUNT (AUTO) 260 K/uL (150-450); RED BLOOD CELL COUNT(AUTO) 5.82 MIL/uL (4.5-6.0); WHITE BLOOD COUNT (AUTO) 4.4 K/uL (4.3-11.0)
[2023-03-21 20:14] LABS: CALCIUM, SERUM 9.1 mg/dL (8.5-10.1); CARBON DIOXIDE 28 mmol/L (21-32); CHLORIDE 107 mmol/L (98-107); GLUCOSE 91 mg/dL (74-106); POTASSIUM 4.2 mmol/L (3.5-5.1); SODIUM SERUM 140 mmol/L (136-145); UREA NITROGEN, BLOOD 23 mg/dL (7-18)
[2023-03-21 20:20] LABS: ALANINE AMINOTRANSFERASE 18 U/L (12-78); ALBUMIN 3.2 g/dL (3.4-5.0); ALKALINE PHOSPHATASE 49 U/L (46-116); ASPARTATE AMINOTRANSFERASE 12 U/L (15-37); BILIRUBIN,TOTAL 0.2 mg/dL (0.2-1.0); TOTAL PROTEIN, SERUM 7.7 g/dL (6.4-8.2)
[2023-03-21 20:22] LABS: ALCOHOL, BLOOD < 3 mg/dL (0-10)
[2023-03-21 21:22] LABS: BILIRUBIN,URINE NEGATIVE (NEGATIVE); COLOR,URINE YELLOW (YELLOW); LEUKOCYTE ESTERASE ,URINE 1+ (NEGATIVE); NITRITE, URINE POSITIVE (NEGATIVE); PROTEIN,URINE TRACE mg/dl (NEGATIVE); UGLUCOSE NEGATIVE (NEGATIVE); UROBILINOGEN,URINE 0.2 EU/dL (0.2)
[2023-03-21 21:38] LABS: BACTERIA,URINE None seen /HPF (None Seen); MUCUS,URINE Few /LPF (None Seen); SQUAMOUS EPITHELIAL CELL,UR 0-2 /HPF (None Seen); WBC,URINE 0-2 /HPF (0-3)
[2023-03-21 22:01] LABS: EOSINOPHILS % (MANUAL) 3 % (0-4); LYMPHOCYTES % (MANUAL) 46 % (16-48); MONOCYTES % (MANUAL) 6 % (0-11.0); NEUTROPHILS % (MANUAL) 45 (42-76)
[2023-03-21] MEDS: LEVOFLOXACIN (250MG) 250 MG TABLET PO SCH (22:25)
--- NOTE | 2023-03-21 23:14 | NUR ---
STEPHAN DAVEY CRISIS TEAM AT PT'S BEDSIDE FOR EVAL
[2023-03-21] MEDS ORDERED: LORAZEPAM INJ 2 MG/ML VIAL IV ONE (23:30)
[2023-03-22] MEDS ORDERED: LACT10SO3 PO (00:42)
[2023-03-22] MEDS ORDERED: CRAN425C6 PO (00:42)
--- NOTE | 2023-03-22 00:59 | NUR ---
REPORT GIVEN TO GPS RN FOR BUNNY
--- NOTE | 2023-03-22 01:44 | NUR ---
PT TRANSFERRED TO [facility] PROTOCOL
[2023-03-22] MEDS ORDERED: BLOOD SUGAR DIAGNOSTIC 1 EACH STRIP IN ONE (02:45)
[2023-03-22] MEDS ORDERED: MAGNESIUM HYDROXIDE 30 ML UDC PO PRN ×2 (03:00→13:00)
[2023-03-22] MEDS ORDERED: MAG HYDROX/AL HYDROX/SIMETH 30 ML UDC PO PRN (03:00)
[2023-03-22] MEDS ORDERED: ACETAMINOPHEN 325 MG TABLET PO PRN (03:00)
[2023-03-22] MEDS ORDERED: LORAZEPAM 1 MG TABLET PO PRN (03:00)
[2023-03-22 03:20] VITALS: BP 137/75; TEMP 98.1
--- NOTE | 2023-03-22 04:10 | NUR ---
DOLL DRESSER NOTE ADMISSION NOTES: ADMITTED 62 Y/O MALE FROM [facility] AND EVALUATED FROM [facility] DUE ER TO INCREASE AGITATION,SCREAMING AND REFUSING TO TAKE HIS MEDICATION. PATIENT ADMITTING DIAGNOSIS,PSYCHOSIS NOS.PATIENT ON 5150 HOLD FOR GD ADULT. UPON FACE TO FACE ASSESSMENT PATIENT IS A&OX1 ,PATIENT IS ONLY ALERT TO HIMSELF. PATIENT IS PARANOID SCHIZOPRENIA, ,ANXIOUS .EASILY AGITATED CONFUSED,DISORGANIZED, DISHEVELED ,UNCOOPERATIVE ,HYPERVERBAL AND NEEDS REDIRECTION.PATIENT IS LYING IN BED WITH NO S/S OF PAIN. DENIES SI /HI AT THIS TIME, PATIENT IS UNDER THE CARE OF PSYCHIATRIC DR. CARRANZA AND THE MEDICAL CARE OF DR. GRIMALDO. PATIENT BELONGINGS AND CONTRABAND WERE DONE ,PT. REFUSED TO SIGNS ANY PAPER WORKS DUE TO CONFUSION. PATIENT ADVISED OF HIS HOLD AND PATIENT RIGHTS BOOKLET GIVEN.PATIENT SKIN ASSESSMENT COMPLETED ,NOTED OF LEFT LEG SCAB.PATIENT IS ORIENTATED TO ROOM ,FLOOR AND STAFF.WITH ALL QUESTIONS ANSWERED.PATIENT EDUCATED ON THE USE OF THE CALL JENSEN .PATIENT BED SIDE RAILS IS UP X2 FOR SAFETY.PATIENT BED IS LOCKED,LOW .WILL CONTINUE TO MONITOR Q15 MINS WITH THE HELP OF OF STAFF TO MAINTAINED SAFETY.
[2023-03-22 07:53] VITALS: BP 116/68; TEMP 97.6
--- NOTE | 2023-03-22 12:00 | NUR ---
throwing clothes all over rm.and disrobing.
[2023-03-22] MEDS: LORAZEPAM 1 MG TABLET PO PRN ×2 (12:13→18:37)
--- NOTE | 2023-03-22 12:25 | NUR ---
ativan given at this time.
[2023-03-22] MEDS ORDERED: BISACODYL SUPP (10 MG) 10 MG/SUPP.RECT SUPP.RECT RC PRN (13:00)
[2023-03-22] MEDS: GABAPENTIN 100 MG CAPSULE PO SCH ×2 (13:44→17:16)
[2023-03-22 16:05] VITALS: BP_SYST 109; BP_SYST 153; BP_DIAS 62; BP_DIAS 75; TEMP 97.6; TEMP 97.8
[2023-03-22] MEDS: SENNOSIDES 8.6 MG TABLET PO SCH (17:16)
[2023-03-22] MEDS: OLANZAPINE 2.5 MG TABLET PO SCH (17:16)
[2023-03-22] MEDS: CHOLECALCIFEROL 1,000 UNIT TABLET (VIT D3) PO SCH (17:17)
--- NOTE | 2023-03-22 18:41 | NUR ---
given ativan due to yelling.up in chair at this time.
[2023-03-22 19:57] VITALS: BP 105/81; TEMP 98
--- NOTE | 2023-03-22 19:57 | NUR ---
GPS PIPE COVERER HELPER NOTE : RECEIVED PATIENT SITTING UP ON YESSI-CHAIR ,SAFETY MEASURES MAINTAINED. NO S/S OR COMPLAINTS OF PAIN AT THIS TIME. PATIENT IS DISPLAYING NO S/S OF APPARENT DISTRESS AT THIS TIME. PATIENT BREATHING IS UNLABORED WITH EQUAL RISE AND FALL OF THE CHEST. PATIENT IS ALERT AND ORIENTED X 1 ON ROOM AIR WITH A SPO2 95%. PATIENT IS COMPLIANT WITH MEDICATIONS, ANXIOUS AT TIMES, MAKES NEEDS KNOWN, FORGETFUL, AND COOPERATIVE. PATIENT DENIES SUICIDAL AND HOMICIDAL IDEATIONS AT THIS TIME. PATIENT ASSISTED WITH TURNING AND REPOSITIONING Q2HR AND PRN FOR COMFORT AND CIRCULATION. PATIENT HAS NO NEEDS AT THIS TIME. PATIENT EDUCATED ON THE USE OF THE CALL JENSEN. PATIENT BED SIDE RAILS UP X 2 FOR SAFETY. PATIENT BED IS LOCKED, LOW, WITH BED ALARM ON. WILL CONTINUE TO MONITOR THIS PATIENT Q15 MINUTES WITH THE HELP OF STAFF TO MAINTAIN SAFETY.
[2023-03-22] MEDS ORDERED: LEVETIRACETAM SOL (5 ML) 100 MG/ML UDC PO SCH (21:00)
[2023-03-22] MEDS: LISINOPRIL (5MG) 5 MG TABLET PO SCH (22:00)
[2023-03-22] MEDS: DOCUSATE SODIUM 100 MG CAPSULE PO SCH (22:10)
[2023-03-22] MEDS: LEVOFLOXACIN (250MG) 250 MG TABLET PO SCH (22:12)
[2023-03-22] MEDS: ATORVASTATIN 10 MG TABLET PO SCH (22:12)
[2023-03-22] MEDS ORDERED: LEVETIRACETAM SOL (5 ML) 100 MG/ML UDC ONE (22:25)
[2023-03-23] MEDS: ZOLPIDEM TARTRATE 5 MG TABLET PO PRN (00:05)
--- NOTE | 2023-03-23 00:07 | NUR ---
NOTE.PATIENT REQUESTED AMBIEN 5 MG TO HELP HIM TO SLEEP.GIVEN PRN AMBIEN 5MG PO ORDER.WILL CONTINUE TO MONITOR.
[2023-03-23 07:10] LABS: BASOPHILS % (AUTO) 0.2 % (0.0-2.0); HEMATOCRIT 39 % (39-51); HEMOGLOBIN 11.9 g/dL (13.5-17.5); LYMPHOCYTES # (AUTO) 1.3 K/uL (0.8-4.8); LYMPHOCYTES % (AUTO) 20.3 % (20.0-44.0); MEAN CORPUSCULAR HGB CONC 31 g/dl (31.0-36.0); MEAN CORPUSCULAR VOLUME 72 fL (80-96); MONOCYTES # (AUTO) 0.6 K/uL (0.1-1.30); MONOCYTES % (AUTO) 9.2 % (2.0-12.0); NEUTROPHILS # (AUTO) 4.6 K/uL (1.8-8.9); NEUTROPHILS % (AUTO) 70.3 % (43.0-81.0); PLATELET COUNT (AUTO) 260 K/uL (150-450); RED BLOOD CELL COUNT(AUTO) 5.35 MIL/uL (4.5-6.0); WHITE BLOOD COUNT (AUTO) 6.6 K/uL (4.3-11.0)
[2023-03-23 07:39] LABS: CALCIUM, SERUM 9.4 mg/dL (8.5-10.1); CREATININE 1.6 mg/dL (0.6-1.3)
--- NOTE | 2023-03-23 07:40 | NUR ---
GPS RN NOTE : RECEIVED PATIENT SLEEPING IN BED, EASILY AROUSED BY VERBAL STIMULI. SAFETY MEASURES MAINTAINED. NO S/S OF ANY KIND OF DISTRESS AT THIS TIME. PATIENT BREATHING IS UNLABORED WITH EQUAL RISE AND FALL OF THE CHEST. PATIENT IS ALERT AND ORIENTED X 1 ON ROOM AIR WITH A SPO2 95%. SAFETY PRECAUTIONS IN PLACED: PATIENT BED SIDE RAILS UP X 2 FOR SAFETY. PATIENT BED IS LOCKED, LOW, WITH BED ALARM ON. WILL CONTINUE TO MONITOR THIS PATIENT Q15 MINUTES WITH THE HELP OF STAFF.
[2023-03-23 08:00] VITALS: BP 116/69; TEMP 98
[2023-03-23] MEDS: OLANZAPINE 2.5 MG TABLET PO SCH ×2 (08:15→16:47)
[2023-03-23] MEDS: SENNOSIDES 8.6 MG TABLET PO SCH ×2 (08:15→16:47)
[2023-03-23] MEDS: GABAPENTIN 100 MG CAPSULE PO SCH ×3 (08:16→16:47)
[2023-03-23] MEDS: FERROUS SULFATE (325 MG) 325 MG/TAB TABLET PO SCH (09:01)
--- NOTE | 2023-03-23 09:30 | NUR ---
RN NOTES NOTIFIED PHARMACY TO SEND KEPPRA THE UNIT DOES NOT HAVE IN [facility], WILL MONITOR.
[2023-03-23] MEDS: LEVETIRACETAM SOL (5 ML) 100 MG/ML UDC PO SCH ×2 (10:50→21:34)
[2023-03-23] MEDS: IV NS 0.9% 1,000 ML IV SCH (15:00)
[2023-03-23 16:00] VITALS: BP 105/54; TEMP 97.4
--- NOTE | 2023-03-23 16:04 | NUR ---
RN NOTES NOTIFIED DR. FALCON THAT PATIENT REFUSING IV HYDRATION. MD ORDER TO ENCOURAGE ORAL HYDRATION AND TO DO ANOTHER BMP TOMORROW. PATIENT IS ALSO FOR IN/OUT CATHETERIZATION IF PATIENT WILL NOT VOID FREELY FOR URINALYSIS.WILL MONITOR.
[2023-03-23] MEDS: CHOLECALCIFEROL 1,000 UNIT TABLET (VIT D3) PO SCH (17:01)
--- NOTE | 2023-03-23 18:17 | NUR ---
RN NOTES URINE SAMPLE WAS COLLECTED VIA IN/OUT CATHETERIZATION WITH TOTAL OUTPUT OF 100ML. NOTIFIED LABORATORY FOR TESTER ARMATURE OR FIELDS OF SPECIMEN.
--- NOTE | 2023-03-23 18:19 | NUR ---
GPS RN CLOSING NOTE PATIENT AWAKE IN BED, A/O TO NAME ONLY. NOT IN ANY FORM OF DISTRESS/ NO COMPLAINTS OF PAIN AND DISCOMFORT AT THIS TIME. AT THIS TIME. PATIENT IS DISPLAYING NO S/S OF APPARENT DISTRESS AT THIS TIME.PATIENT IS COOPERATIVE, COMPLIANT WITH MEDICATIONS. PATIENT DENIES SUICIDAL AND HOMICIDAL IDEATIONS AT THIS TIME. PATIENT ASSISTED WITH TURNING AND REPOSITIONING Q2HR AND PRN FOR COMFORT AND CIRCULATION. SAFETY MEASURES IN PLACED: EDUCATED PATIENT ON THE USE OF THE CALL JENSEN, BED SIDE RAILS UP X 2 FOR SAFETY, BED IS LOCKED, LOW, WITH BED ALARM ON. WILL ENDORSED TO NEXT NURSE FOR BUNNY.
--- NOTE | 2023-03-23 19:53 | NUR ---
NOC RN NOTE RECEIVED PATIENT IN BED, A/O TO NAME. NO S/S OF APPARENT DISTRESS. BREATHING EVEN AND UNLABORED. LEFT ANKLE/FOOT NOTED TO HAVE 2+ EDEMA. CALM AT THIS TIME, PATIENT DENIES ANY SI NOR HI IDEATION. WILL MONITOR AND DO VISUAL CHECKS TO ENSURE PATIENT SAFETY.
[2023-03-23 20:00] VITALS: BP 99/55; TEMP 97.1
--- NOTE | 2023-03-23 20:00 | NUR ---
RN NOTE:- RECEIVED PT IN BED. AOX1 WITH PERIODS OF CONFUSION. NO RESP DISTRESS NOTED. DENIES PAIN OR DISCOMFORT. SKIN WARM AND DRY TO TOUCH. DENIES SI/HI AT THIS TIME. BED KEPT LOW AND LOCKER FOR SAFETY.
[2023-03-23] MEDS: DOCUSATE SODIUM 100 MG CAPSULE PO SCH (21:33)
[2023-03-23] MEDS: ATORVASTATIN 10 MG TABLET PO SCH (21:33)
[2023-03-23] MEDS: LEVOFLOXACIN (250MG) 250 MG TABLET PO SCH (21:33)
[2023-03-23] MEDS: LISINOPRIL (5MG) 5 MG TABLET PO SCH (22:52)
[2023-03-24] MEDS: IV NS 0.9% 1,000 ML IV SCH (04:20)
[2023-03-24 06:43] LABS: CREATININE 1.2 mg/dL (0.6-1.3); POTASSIUM 4.1 mmol/L (3.5-5.1)
--- NOTE | 2023-03-24 06:48 | NUR ---
NOC RN NOTE HAD TO DO REPEAT IN N OUT CATHETERIZATION BECAUSE SPECIMEN WAS NOT PICKED UP BY LAB AND URINE SPECIMEN HAS BEEN SITTING SINCE 1739 UN-REFRIGERATED. IN N OUT CATHETERIZATION UNSUCCESSFUL D/T RESISTANCE. MADE CHARGE NURSE, YANY MELENDEZ PLUS THE UNKNOWN IF PRESENT UPON ADMISSION SCROTAL BRUISE. PICTURE TAKEN AND CHARTED. CANNOT COLLECT URINE D/T INCONTINENCE, TRIED HAVING PATIENT PEE ON URINAL BUT HE CANNOT BUT DIAPER IS NOTED WET WITH URINE. ALSO SEXUALLY INAPPROPRIATE WORDS OF PATIENT AND TO QUOTE: "YOU A GOOD GIRL HUH" "YOU LIKE MY COCK HUH" WAS REPORTED TO CHARGE.
[2023-03-24] MEDS ORDERED: IV NS 0.9% 1,000 ML IV PRN (06:57)
--- NOTE | 2023-03-24 06:59 | NUR ---
NOC RN CLOSING NOTE PATIENT IN BED WITH EYES CLOSED, EASY TO AROUSE. BREATHING EVEN AND UNLABORED WITH NO APPARENT DISTRESS. UA TO BE ENDORSED TO AM SHIFT. ALL NEEDS ATTENDED. ALL SCHEDULED MEDICATIONS ADMINISTERED. PATIENT DENIES SI/HI THIS AM. WILL ENDORSE TO MORNING SHIFT RN FOR CONTINUITY OF CARE.
--- NOTE | 2023-03-24 07:31 | NUR ---
WOUND CARE CONSULT: PT PRESENTS WITH RASH/DISCOLORATION TO SCROTUM AND EXCORIATED AREA TO RT LOWER BUTTOCK. RECOMMENDATIONS MADE FOR SKIN PROTECTION. DISCUSSED WITH NURSING STAFF. PT IS INCONTINENT. MD IN AGREEMENT WITH PLAN OF CARE.
[2023-03-24 08:00] VITALS: BP 100/64; TEMP 98
[2023-03-24] MEDS ORDERED: Z GUARD REMEDY 4 OZ OINT TP PRN (08:00)
[2023-03-24] MEDS: GABAPENTIN 100 MG CAPSULE PO SCH ×3 (08:17→17:03)
[2023-03-24] MEDS: SENNOSIDES 8.6 MG TABLET PO SCH ×2 (08:17→17:02)
[2023-03-24] MEDS: OLANZAPINE 2.5 MG TABLET PO SCH ×2 (08:18→17:02)
[2023-03-24] MEDS: LEVETIRACETAM (250 MG) 250 MG TABLET PO SCH ×2 (08:18→20:33)
[2023-03-24] MEDS: FERROUS SULFATE (325 MG) 325 MG/TAB TABLET PO SCH (08:19)
[2023-03-24] MEDS: Z GUARD REMEDY 4 OZ OINT TP SCH (08:23)
[2023-03-24] MEDS: CLOTRIMAZOLE 1% 15 GM TUBE TP SCH ×2 (08:23→17:03)
--- NOTE | 2023-03-24 08:54 | NUR ---
DARRELL Initial Discharge Plan: [facility] [address] [place] [address] ([phone]). DARRELL spoke with Marion presley who stated that pt is welcomed back. DARRELL will contact pt's father Varun ([phone]) to discuss treatment/discharge plan. DARRELL will work with the family, MD, and pt to help coordinate appropriate discharge plan.
--- NOTE | 2023-03-24 08:54 | NUR ---
DARRELL Clinical Note: Pt placed on a 5150 hold for GD. Per hold, pt was aggressive at the facility. [facility] [address] [place] [address] ([phone]). DARRELL spoke with Marion presley who stated that pt is welcomed back. DARRELL will contact pt's father Varun ([phone]) to discuss treatment/discharge plan.
--- NOTE | 2023-03-24 09:43 | NUR ---
GPS RN NOTE: RECEIVED PT IN BED. AOX1 WITH PERIODS OF CONFUSION. NO RESP DISTRESS NOTED. DENIES PAIN OR DISCOMFORT. SKIN WARM AND DRY TO TOUCH. DENIES SI/HI AT THIS TIME. BED KEPT LOW AND LOCKER FOR SAFETY.
--- NOTE | 2023-03-24 10:54 | NUR ---
DARRELL Family Contact: SW attempted to contact pt's father Sheldon ([phone], ) and the numbers did not work. SW attempted to contact next of kin Brother Connor ([phone]) and the phone number was incorrect.
[2023-03-24 16:00] VITALS: BP 100/57; TEMP 97.8
[2023-03-24] MEDS: CHOLECALCIFEROL 1,000 UNIT TABLET (VIT D3) PO SCH (17:02)
--- NOTE | 2023-03-24 18:20 | NUR ---
GPS RN NOTE: UA COLLECTED AND SENT TO LAB
[2023-03-24 19:40] LABS: BILIRUBIN,URINE NEGATIVE (NEGATIVE); COLOR,URINE YELLOW (YELLOW); LEUKOCYTE ESTERASE ,URINE 1+ (NEGATIVE); NITRITE, URINE POSITIVE (NEGATIVE); PH,URINE 5.5 (5.0-8.0); PROTEIN,URINE TRACE mg/dl (NEGATIVE); UGLUCOSE NEGATIVE (NEGATIVE); UROBILINOGEN,URINE 0.2 EU/dL (0.2)
[2023-03-24 19:48] LABS: BACTERIA,URINE 2+ /HPF (None Seen)
[2023-03-24 19:51] LABS: CREATININE, URINE 227.2 MG/DL (30.0-125.0)
[2023-03-24 20:09] VITALS: BP 109/45; TEMP 97.8
[2023-03-24 21:48] LABS: EOSINOPHIL,URINE None Seen
[2023-03-24] MEDS: LISINOPRIL (5MG) 5 MG TABLET PO SCH (22:00)
[2023-03-24] MEDS: DOCUSATE SODIUM 100 MG CAPSULE PO SCH (22:08)
[2023-03-24] MEDS: ATORVASTATIN 10 MG TABLET PO SCH (22:09)
[2023-03-24] MEDS: LEVOFLOXACIN (250MG) 250 MG TABLET PO SCH (22:30)
[2023-03-25] MEDS: LORAZEPAM 1 MG TABLET PO PRN ×3 (00:27→20:30)
--- NOTE | 2023-03-25 00:34 | NUR ---
RN NOTE :- GIVEN PRN ATIVAN DUE TO YELLING ,ANXIOUS AT THIS TIME.
[2023-03-25 08:00] VITALS: BP 142/67; TEMP 97.7
[2023-03-25] MEDS: LEVETIRACETAM (250 MG) 250 MG TABLET PO SCH ×2 (08:35→20:29)
[2023-03-25] MEDS: FERROUS SULFATE (325 MG) 325 MG/TAB TABLET PO SCH (08:35)
[2023-03-25] MEDS: GABAPENTIN 100 MG CAPSULE PO SCH ×3 (08:35→18:06)
[2023-03-25] MEDS: SENNOSIDES 8.6 MG TABLET PO SCH ×2 (08:35→18:07)
[2023-03-25] MEDS: OLANZAPINE 2.5 MG TABLET PO SCH ×3 (08:36→18:06)
[2023-03-25] MEDS: CLOTRIMAZOLE 1% 15 GM TUBE TP SCH ×2 (08:37→18:29)
[2023-03-25] MEDS: Z GUARD REMEDY 4 OZ OINT TP SCH (09:27)
--- NOTE | 2023-03-25 12:08 | NUR ---
yelling out freq.given ativan at this time.
[2023-03-25 16:00] VITALS: BP 107/74; TEMP 98.7
[2023-03-25] MEDS: CHOLECALCIFEROL 1,000 UNIT TABLET (VIT D3) PO SCH (18:06)
[2023-03-25] MEDS ORDERED: OLANZAPINE 10 MG VIAL IM ONE (21:00)
[2023-03-25 21:18] VITALS: BP 109/61; TEMP 98.2
--- NOTE | 2023-03-25 21:33 | NUR ---
finish machine tender notes Pt screaming ,yelling ,agitated,Zyprexa IM given as ordered.no signs of any acute distress noted will continue monitoring.
[2023-03-25] MEDS: ATORVASTATIN 10 MG TABLET PO SCH (22:00)
[2023-03-25] MEDS: LISINOPRIL (5MG) 5 MG TABLET PO SCH (22:00)
[2023-03-25] MEDS: DOCUSATE SODIUM 100 MG CAPSULE PO SCH (22:00)
[2023-03-25] MEDS: LEVOFLOXACIN (250MG) 250 MG TABLET PO SCH (22:00)
[2023-03-26 06:47] LABS: CALCIUM, SERUM 8.9 mg/dL (8.5-10.1)
--- NOTE | 2023-03-26 06:48 | NUR ---
green coffee blender closing notes pt remains sleeping but arouse easily, slept well and calmed at this time. cooperative but still confusion noted. Morning care done and kept him warm and comfortable at all times. safety precaution implemented and observed. will endorse to am nurse for continuity of care.
[2023-03-26 08:00] VITALS: BP 113/68; TEMP 98
[2023-03-26] MEDS: LEVETIRACETAM (250 MG) 250 MG TABLET PO SCH ×2 (11:04→21:38)
[2023-03-26] MEDS: SENNOSIDES 8.6 MG TABLET PO SCH ×2 (11:04→18:13)
[2023-03-26] MEDS: GABAPENTIN 100 MG CAPSULE PO SCH ×3 (11:05→18:13)
[2023-03-26] MEDS: FERROUS SULFATE (325 MG) 325 MG/TAB TABLET PO SCH (11:05)
[2023-03-26] MEDS: CLOTRIMAZOLE 1% 15 GM TUBE TP SCH ×2 (11:45→17:07)
[2023-03-26] MEDS: Z GUARD REMEDY 4 OZ OINT TP SCH (11:45)
[2023-03-26] MEDS: OLANZAPINE 2.5 MG TABLET PO SCH ×2 (13:28→18:13)
[2023-03-26] MEDS: LORAZEPAM 1 MG TABLET PO PRN ×2 (14:41→23:20)
--- NOTE | 2023-03-26 14:41 | NUR ---
given ativan for continual yelling.
[2023-03-26 16:00] VITALS: BP 129/66; TEMP 98
[2023-03-26] MEDS: CHOLECALCIFEROL 1,000 UNIT TABLET (VIT D3) PO SCH (18:12)
--- NOTE | 2023-03-26 19:30 | NUR ---
RN NOTE RECEIVED PT IN BED. PT A/OX1, WITH PERIODS OF CONFUSION. NO RESP DISTRESS NOTED. NO S/S OF PAIN OR DISCOMFORT. SKIN WARM AND DRY TO TOUCH. DENIES SI/HI AT THIS TIME. SAFETY MEASURES IN PLACE: BED IN LOW POSITION, SIDE RAILS UP X3. WILL CONTINUE TO MONITOR..
[2023-03-26 19:41] VITALS: BP 117/72; TEMP 98.1
[2023-03-26] MEDS: ATORVASTATIN 10 MG TABLET PO SCH (21:38)
[2023-03-26] MEDS: DOCUSATE SODIUM 100 MG CAPSULE PO SCH (21:38)
[2023-03-26] MEDS: LISINOPRIL (5MG) 5 MG TABLET PO SCH (21:41)
--- NOTE | 2023-03-26 23:20 | NUR ---
RN NOTE PT IS ANXIOUS, AND RESTLESS. HE IS CONTINUOUSLY SCREAMING. ATIVAN ADMINSTERED TO PT.
[2023-03-27] MEDS: ZOLPIDEM TARTRATE 5 MG TABLET PO PRN (00:30)
--- NOTE | 2023-03-27 00:30 | NUR ---
RN NOTE PT IS UNABLE TO SLEEP. AMBIEN ADMINISTERED TO PT.
--- NOTE | 2023-03-27 06:40 | NUR ---
RN NOTE LEFT PT IN BED. PT A/OX1, WITH PERIODS OF CONFUSION. NO RESP DISTRESS NOTED. NO S/S OF PAIN OR DISCOMFORT. SKIN WARM AND DRY TO TOUCH. DENIES SI/HI AT THIS TIME. SAFETY MEASURES IN PLACE: BED IN LOW POSITION, SIDE RAILS UP X3. ALL NEEDS MET. PT LEFT CLEAN, AND DRY. WILL ENDORSE PT TO AM SHIFT NURSE FOR BUNNY.
[2023-03-27 08:00] VITALS: BP 112/71; TEMP 97.8
[2023-03-27] MEDS: GABAPENTIN 100 MG CAPSULE PO SCH ×3 (08:12→17:24)
[2023-03-27] MEDS: LEVETIRACETAM (250 MG) 250 MG TABLET PO SCH ×2 (08:12→21:51)
[2023-03-27] MEDS: FERROUS SULFATE (325 MG) 325 MG/TAB TABLET PO SCH (08:12)
[2023-03-27] MEDS: SENNOSIDES 8.6 MG TABLET PO SCH ×2 (08:13→17:24)
[2023-03-27] MEDS: OLANZAPINE 2.5 MG TABLET PO SCH ×3 (08:13→17:24)
[2023-03-27] MEDS: CLOTRIMAZOLE 1% 15 GM TUBE TP SCH ×2 (09:14→17:25)
[2023-03-27] MEDS: Z GUARD REMEDY 4 OZ OINT TP SCH (09:14)
--- NOTE | 2023-03-27 09:15 | NUR ---
[facility]PS RN NOTE: RECEIVED PT IN BED. AOX1 WITH PERIODS OF CONFUSION. NO RESP DISTRESS NOTED. DENIES PAIN OR DISCOMFORT. SKIN WARM AND DRY TO TOUCH. DENIES SI/HI AT THIS TIME. BED KEPT LOW AND LOCKED FOR SAFETY.
--- NOTE | 2023-03-27 13:15 | NUR ---
Court Notification: SW attempted to contact pt's person to notify father Sheldon ([phone]) but phone number does not work.
--- NOTE | 2023-03-27 13:16 | NUR ---
Court Hearing: Patient's court hearing for [id number] was today and it was upheld for GD.
[2023-03-27 16:00] VITALS: BP 112/61; TEMP 97.7
[2023-03-27] MEDS: CHOLECALCIFEROL 1,000 UNIT TABLET (VIT D3) PO SCH (17:31)
--- NOTE | 2023-03-27 20:04 | NUR ---
GPS IT NETWORK ADMINISTRATOR NOTE : RECEIVED PATIENT IN BED ASLEEP.A/OX1.ON ROOM AIR WITH SPO2 97%. BREATHING NON-LABORED WITH EQUAL RISE AND FALL OF THE CHEST. NO S/S OR COMPLAINTS OF PAIN AT THIS TIME. PATIENT IS DISPLAYING NO S/S OF APPARENT DISTRESS AT THIS TIME. PATIENT IS COMPLIANT WITH MEDICATIONS, ANXIOUS AT TIMES, MAKES NEEDS KNOWN, FORGETFUL, AND COOPERATIVE. PATIENT DENIES SUICIDAL AND HOMICIDAL IDEATIONS AT THIS TIME. PATIENT ASSISTED WITH TURNING AND REPOSITIONING Q2HR AND PRN FOR COMFORT AND CIRCULATION. PATIENT HAS NO NEEDS AT THIS TIME. PATIENT EDUCATED ON THE USE OF THE CALL JENSEN. PATIENT BED SIDE RAILS UP X 2 FOR SAFETY. PATIENT BED IS LOCKED, LOW, WITH BED ALARM ON. WILL CONTINUE TO MONITOR THIS PATIENT Q15 MINUTES WITH THE HELP OF STAFF TO MAINTAIN SAFETY.
[2023-03-27 20:09] VITALS: BP 115/80; TEMP 97.6
[2023-03-27] MEDS: ATORVASTATIN 10 MG TABLET PO SCH (21:51)
[2023-03-27] MEDS: LISINOPRIL (5MG) 5 MG TABLET PO SCH (21:52)
[2023-03-27] MEDS: DOCUSATE SODIUM 100 MG CAPSULE PO SCH (21:53)
--- NOTE | 2023-03-28 07:00 | NUR ---
STATE FARM AGENT OPENING NOTE PATIENT IN BED AWAKE, SMILING WHEN I TALK TO HIM, NOT ORIENTED, CONFUSED. O2 SAT INN ROOM AIR 97%, NO S/S OF RESP. DISTRESS NOTED. NO S/S OF DISCOMFORT NOTED. HOB ELEVATED, ON ASPIRATION PRECAUTION. INCONTINENT. SAFETY MEASURE IN PLACE; BED LOCKED TO THE LOWEST POSITION, BED ALARM ON, SIDE RAILS UP X4. CONT. TO MONITOR.
[2023-03-28 08:00] VITALS: BP 119/64; TEMP 97.8
[2023-03-28] MEDS: CLOTRIMAZOLE 1% 15 GM TUBE TP SCH ×2 (09:00→17:56)
[2023-03-28] MEDS: Z GUARD REMEDY 4 OZ OINT TP SCH (09:00)
[2023-03-28] MEDS: FERROUS SULFATE (325 MG) 325 MG/TAB TABLET PO SCH (09:48)
[2023-03-28] MEDS: LEVETIRACETAM (250 MG) 250 MG TABLET PO SCH ×2 (09:49→20:38)
[2023-03-28] MEDS: SENNOSIDES 8.6 MG TABLET PO SCH ×2 (09:49→17:55)
[2023-03-28] MEDS: OLANZAPINE 2.5 MG TABLET PO SCH ×3 (09:50→17:55)
[2023-03-28] MEDS: GABAPENTIN 100 MG CAPSULE PO SCH ×3 (09:55→17:55)
[2023-03-28] MEDS ORDERED: CEFTRIAXONE 1 G in IV D5W 50 ML IV SCH (14:00)
--- NOTE | 2023-03-28 14:00 | NUR ---
MOLD CLOSER NOTE THE PHARMACY CHANGED PO ANTIBIOTICS TO IV. PER [facility] WE ARE NOT ALLOW TO HAVE IV ACCESS TO THE PATIENTS FOR SAFETY ISSUES. I CALLED BACK TO THE PHARMACIST TO CHANGE THE IV ANTIBIOTIC TO IM ROUTE. I AM STILL WAITING FOR THE PHARMACY NEW ORDER. I NOTIFIED TO MY CHARGE NURSE "JUVENTINO", HE SAID HE WILL FOLLOW UP.
[2023-03-28] MEDS ORDERED: CEFTRIAXONE 1 G in IV D5W 50 ML IM SCH (14:11)
[2023-03-28 15:58] VITALS: BP 142/66; TEMP 97.9
[2023-03-28] MEDS: CHOLECALCIFEROL 1,000 UNIT TABLET (VIT D3) PO SCH (17:55)
--- NOTE | 2023-03-28 18:28 | NUR ---
RN CLOSING NOTES PATIENT IN BED AWAKE, ALERT/ORIENTED X1, CONFUSED. O2 SAT INN ROOM AIR 96%, NO S/S OF RESP. DISTRESS NOTED. NO S/S OF DISCOMFORT NOTED. HOB ELEVATED, ON ASPIRATION PRECAUTION. INCONTINENT. SAFETY MEASURE IN PLACE; BED LOCKED TO THE LOWEST POSITION, BED ALARM ON, SIDE RAILS UP X4. CONT. TO MONITOR.
[2023-03-28] MEDS: CEFTRIAXONE 1 G VIAL IM SCH (19:07)
--- NOTE | 2023-03-28 19:53 | NUR ---
RN- NOTES PATIENT RESTING IN ROOM, NO S/S OF DISTRESS. PATIENT IS ANXIOUS COOPERATIVE / UNCOOPERTIVE AT A TIMES, DISORIENTED, HYPERVERBAL LOUD TALKING TO SELF CONFUSED, PARANOID EASILY AGITATED, GUARDED,SUSPICIOUS . PATIENT IS MEDICATION COMPLIANT. NEEDS FREQUENT REDIRECTION. YELLING AT A TIMES. SAFETY PRECAUTIONS MAINTANIED WILL CONTINUE TO MONITOR Q 15 MINUTES FOR SAFETY AND BEHAVIOR.
[2023-03-28 20:00] VITALS: BP 132/71; TEMP 98.3
[2023-03-28] MEDS: DOCUSATE SODIUM 100 MG CAPSULE PO SCH (21:04)
[2023-03-28] MEDS: ATORVASTATIN 10 MG TABLET PO SCH (21:04)
[2023-03-28] MEDS: LISINOPRIL (5MG) 5 MG TABLET PO SCH (21:05)
--- NOTE | 2023-03-29 07:00 | NUR ---
FILER FINISH OPENING NOTE PATIENT AWAKE, ORIENTED TO NAME ONLY. PATIENT COOPERATIVE AND FOLLOW SIMPLES COMMANDS. PATIENT IS ON ASPIRATION PRECAUTION, ON THICKENED FLUIDS. HOB ELEVATED, NO S/S OF RESPIRATORY DISTRESS NOTED. NO S/S OF DISCOMFORT NOTED. SIDE RAILS UPX4. SAFETY MEASURES IN PLACE. BED LOCKED TO THE LOWEST POSITION, TABLE WITHIN REACH. CONT. TO MONITOR.
[2023-03-29 08:00] VITALS: BP 121/66; TEMP 97.6
[2023-03-29] MEDS: CLOTRIMAZOLE 1% 15 GM TUBE TP SCH ×2 (09:00→17:00)
[2023-03-29] MEDS: Z GUARD REMEDY 4 OZ OINT TP SCH (09:00)
[2023-03-29] MEDS: GABAPENTIN 100 MG CAPSULE PO SCH ×3 (09:50→18:10)
[2023-03-29] MEDS: OLANZAPINE 2.5 MG TABLET PO SCH ×3 (09:51→18:09)
[2023-03-29] MEDS: FERROUS SULFATE (325 MG) 325 MG/TAB TABLET PO SCH (09:51)
[2023-03-29] MEDS: LEVETIRACETAM (250 MG) 250 MG TABLET PO SCH ×2 (09:51→20:17)
[2023-03-29] MEDS: SENNOSIDES 8.6 MG TABLET PO SCH ×2 (09:51→18:10)
[2023-03-29] MEDS: LORAZEPAM 1 MG TABLET PO PRN (13:05)
[2023-03-29 16:00] VITALS: BP_SYST 127; BP_SYST 140; BP_DIAS 66; BP_DIAS 68; TEMP 97.6; TEMP 98.6
[2023-03-29] MEDS: CHOLECALCIFEROL 1,000 UNIT TABLET (VIT D3) PO SCH (18:10)
--- NOTE | 2023-03-29 18:42 | NUR ---
BOARD CERTIFIED BEHAVIORAL ANALYST CLOSING NOTE PATIENT IS VERY CALM AT PRESENT. ATIVAN PO GIVEN AT 1300 FOR AGITATION DIRECTED BY MD. PATIENT COMPLIANT WITH ALL HIS MEDS TODAY. PATIENT ON ASPIRATION PRECAUTION, PATIENT NEED THICKENED FLUID. HOB ELEVATED. NO S/S OF RESPIRATORY DISTRESS NOTED. SAFETY MEASURES IN PLACE: BED LOCKED TO THE LOWEST POSITION, SIDE RAILS ELEVATED X4. I WILL ENDORSE TO THE FOLLOWING NURSE.
--- NOTE | 2023-03-29 19:40 | NUR ---
GPS RN OPENING NOTES RECEIVED PATIENT IN BED SLEEPING. EASILY BE AWAKEN BY VERBAL STIMULI. A/O X 1. ON ROOM AIR, BREATHING EVEN AND UNLABORED, NO S/S OF DISTRESS OR SOB NOTED AT THIS TIME. HOB ELEVATED, FOR ASPIRATION PRECAUTION. SAFETY MEASURES IN PLACE WITH BED IN LOWEST LOCKED POSITION. SIDE RAILS UP. BED ALARM ON. TRAY WITHIN EASY REACH. WILL CONTINUE TO MONITOR THE PATIENT.
[2023-03-29] MEDS: CEFTRIAXONE 1 G VIAL IM SCH (20:17)
[2023-03-29 20:18] VITALS: BP 108/72; TEMP 97.9
[2023-03-29] MEDS: DOCUSATE SODIUM 100 MG CAPSULE PO SCH (21:23)
[2023-03-29] MEDS: LISINOPRIL (5MG) 5 MG TABLET PO SCH (21:23)
[2023-03-29] MEDS: ATORVASTATIN 10 MG TABLET PO SCH (21:23)
--- NOTE | 2023-03-30 06:37 | NUR ---
GPS RN CLOSING NOTES PATIENT IN BED SLEEPING. EASILY BE AWAKEN BY VERBAL STIMULI. A/O X 1. ON ROOM AIR, BREATHING EVEN AND UNLABORED, NO S/S OF DISTRESS OR SOB NOTED AT THIS TIME. HOB ELEVATED, FOR ASPIRATION PRECAUTION. SCHEDULED MEDICATIONS GIVEN. PATIENT WAS COOPERATIVE AND MED COMPLIANT DURING THE SHIFT. PATIENT WAS TAKING CRUSHED PILLS AND USED FOOD THICKENER. SAFETY MEASURES MAINTAINED DURING THE SHIFT. WILL ENDORSE TO THE NEXT SHIFT.
[2023-03-30 08:00] VITALS: BP 90/60; TEMP 97.6
[2023-03-30] MEDS: GABAPENTIN 100 MG CAPSULE PO SCH ×3 (09:45→17:48)
[2023-03-30] MEDS: LEVETIRACETAM (250 MG) 250 MG TABLET PO SCH ×2 (09:45→21:10)
[2023-03-30] MEDS: SENNOSIDES 8.6 MG TABLET PO SCH ×2 (09:46→17:49)
[2023-03-30] MEDS: OLANZAPINE 2.5 MG TABLET PO SCH ×3 (09:46→17:48)
[2023-03-30] MEDS: FERROUS SULFATE (325 MG) 325 MG/TAB TABLET PO SCH (09:47)
[2023-03-30] MEDS: Z GUARD REMEDY 4 OZ OINT TP SCH (09:48)
[2023-03-30] MEDS: CLOTRIMAZOLE 1% 15 GM TUBE TP SCH ×2 (09:48→17:48)
[2023-03-30] MEDS: LORAZEPAM 1 MG TABLET PO PRN ×2 (14:34→23:39)
[2023-03-30 16:00] VITALS: BP 90/64; TEMP 97.8
[2023-03-30] MEDS: CHOLECALCIFEROL 1,000 UNIT TABLET (VIT D3) PO SCH (17:48)
[2023-03-30 20:02] VITALS: BP 112/83; TEMP 98.1
[2023-03-30] MEDS: CEFTRIAXONE 1 G VIAL IM SCH (21:09)
[2023-03-30] MEDS: DOCUSATE SODIUM 100 MG CAPSULE PO SCH (21:10)
[2023-03-30] MEDS: ATORVASTATIN 10 MG TABLET PO SCH (21:10)
[2023-03-30] MEDS: LISINOPRIL (5MG) 5 MG TABLET PO SCH (21:11)
[2023-03-30] MEDS: ZOLPIDEM TARTRATE 5 MG TABLET PO PRN (22:15)
--- NOTE | 2023-03-30 22:29 | NUR ---
ham stripper notes ambien po given with apple sauce to helped the patient sleep . safety precaution implemented and observed , kept him warm and comfortable at all times. will continue monitoring.
--- NOTE | 2023-03-30 23:40 | NUR ---
briquette machine operator helper notes pt remain awake, yelling , anxious, confused.ativan po given as ordered. safety precaution implemented and observed. will continue monitoring.
[2023-03-31 08:00] VITALS: BP 122/62; TEMP 98.4
[2023-03-31] MEDS: OLANZAPINE 2.5 MG TABLET PO SCH ×3 (08:15→17:16)
[2023-03-31] MEDS: FERROUS SULFATE (325 MG) 325 MG/TAB TABLET PO SCH (08:15)
[2023-03-31] MEDS: GABAPENTIN 100 MG CAPSULE PO SCH ×3 (08:15→17:16)
[2023-03-31] MEDS: SENNOSIDES 8.6 MG TABLET PO SCH ×2 (08:16→17:27)
[2023-03-31] MEDS: LEVETIRACETAM (250 MG) 250 MG TABLET PO SCH ×2 (09:09→21:34)
[2023-03-31] MEDS: CLOTRIMAZOLE 1% 15 GM TUBE TP SCH ×2 (09:36→17:27)
[2023-03-31] MEDS: Z GUARD REMEDY 4 OZ OINT TP SCH (09:37)
[2023-03-31 16:00] VITALS: BP 107/64; TEMP 97.4
[2023-03-31] MEDS: CHOLECALCIFEROL 1,000 UNIT TABLET (VIT D3) PO SCH (17:16)
--- NOTE | 2023-03-31 18:43 | NUR ---
RN- CLOSING NOTES PATIENT AWAKE, RESTING IN BED, BREATHING EVEN AND NON LABORED WITH NO S/S OF DISTRESS. PATIENT IS COOPERATIVE, GUARDED, LABILE, ISOLATIVE, WITH OUTBURSTS OF YELLING NOTED. PATIENT IS MEDICATION COMPLIANT. ENCOURAGED PATIENT TO LEAVE ROOM AND SOCIALIZE WITH STAFF, PATIENT REFUSED. DENIES SI/HI BUT IS CONFUSED AT THIS TIME. WILL CONTINUE TO MONITOR Q 15 MINUTES FOR SAFETY AND BEHAVIOR.
[2023-03-31] MEDS: CEFTRIAXONE 1 G VIAL IM SCH (20:12)
[2023-03-31 20:30] VITALS: BP 143/73; TEMP 97.8
[2023-03-31] MEDS: DOCUSATE SODIUM 100 MG CAPSULE PO SCH (21:35)
[2023-03-31] MEDS: LISINOPRIL (5MG) 5 MG TABLET PO SCH (21:36)
[2023-03-31] MEDS: ATORVASTATIN 10 MG TABLET PO SCH (21:36)
--- NOTE | 2023-03-31 22:00 | NUR ---
RN NOTE:- PATIENT RESTING IN ROOM, NO S/S OF DISTRESS. PATIENT IS ANXIOUS COOPERATIVE / UNCOOPERTIVE AT A TIMES, DISORIENTED, HYPERVERBAL LOUD TALKING TO SELF CONFUSED, PARANOID EASILY AGITATED, GUARDED,SUSPICIOUS . PATIENT IS MEDICATION COMPLIANT. NEEDS FREQUENT REDIRECTION. YELLING AT A TIMES. SAFETY PRECAUTIONS MAINTAINED WILL CONTINUE TO MONITOR Q 15 MINUTES FOR SAFETY AND BEHAVIOR.
[2023-04-01 07:49] LABS: CALCIUM, SERUM 8.9 mg/dL (8.5-10.1); CREATININE 0.8 mg/dL (0.6-1.3)
[2023-04-01 08:00] VITALS: BP 107/50; TEMP 98.1
[2023-04-01] MEDS: GABAPENTIN 100 MG CAPSULE PO SCH ×3 (08:16→17:06)
[2023-04-01] MEDS: FERROUS SULFATE (325 MG) 325 MG/TAB TABLET PO SCH (08:16)
[2023-04-01] MEDS: LEVETIRACETAM (250 MG) 250 MG TABLET PO SCH ×2 (08:16→21:47)
[2023-04-01] MEDS: SENNOSIDES 8.6 MG TABLET PO SCH ×2 (08:16→17:06)
[2023-04-01] MEDS: OLANZAPINE 2.5 MG TABLET PO SCH ×3 (08:16→17:06)
[2023-04-01] MEDS: CLOTRIMAZOLE 1% 15 GM TUBE TP SCH ×2 (08:46→17:07)
[2023-04-01] MEDS: Z GUARD REMEDY 4 OZ OINT TP SCH (08:47)
[2023-04-01 16:00] VITALS: BP 111/55; TEMP 98
[2023-04-01] MEDS: CHOLECALCIFEROL 1,000 UNIT TABLET (VIT D3) PO SCH (17:06)
[2023-04-01 20:30] VITALS: BP 109/72; TEMP 96.3
[2023-04-01] MEDS: CEFTRIAXONE 1 G VIAL IM SCH (20:46)
[2023-04-01] MEDS: DOCUSATE SODIUM 100 MG CAPSULE PO SCH (22:13)
[2023-04-01] MEDS: ATORVASTATIN 10 MG TABLET PO SCH (22:15)
[2023-04-01] MEDS: LISINOPRIL (5MG) 5 MG TABLET PO SCH (22:15)
--- NOTE | 2023-04-02 07:30 | NUR ---
GPS RN OPENING NOTE PATIENT AWAKE, ORIENTED TO NAME ONLY. PATIENT COOPERATIVE AND FOLLOWS SIMPLE COMMANDS. PATIENT IS ON ASPIRATION PRECAUTION, ON THICKENED FLUIDS. HOB ELEVATED, NO S/S OF RESPIRATORY DISTRESS NOTED. NO S/S OF DISCOMFORT NOTED. SIDE RAILS UP X 4. SAFETY MEASURES IN PLACE. BED LOCKED TO THE LOWEST POSITION, TABLE WITHIN REACH. CONT. TO MONITOR.
[2023-04-02 08:00] VITALS: BP 125/69; TEMP 98.6
[2023-04-02] MEDS: FERROUS SULFATE (325 MG) 325 MG/TAB TABLET PO SCH (09:07)
[2023-04-02] MEDS: SENNOSIDES 8.6 MG TABLET PO SCH ×2 (09:08→16:51)
[2023-04-02] MEDS: LEVETIRACETAM (250 MG) 250 MG TABLET PO SCH ×2 (09:08→20:39)
[2023-04-02] MEDS: GABAPENTIN 100 MG CAPSULE PO SCH ×3 (09:08→16:51)
[2023-04-02] MEDS: OLANZAPINE 2.5 MG TABLET PO SCH ×3 (09:12→16:52)
[2023-04-02] MEDS: CLOTRIMAZOLE 1% 15 GM TUBE TP SCH ×2 (11:14→16:53)
[2023-04-02] MEDS: Z GUARD REMEDY 4 OZ OINT TP SCH (11:15)
[2023-04-02] MEDS: LORAZEPAM 1 MG TABLET PO PRN (15:27)
[2023-04-02 16:00] VITALS: BP 120/50; TEMP 98.6
[2023-04-02] MEDS: CHOLECALCIFEROL 1,000 UNIT TABLET (VIT D3) PO SCH (16:52)
[2023-04-02 20:03] VITALS: BP 112/97; TEMP 98
[2023-04-02] MEDS: ATORVASTATIN 10 MG TABLET PO SCH (21:49)
[2023-04-02] MEDS: LISINOPRIL (5MG) 5 MG TABLET PO SCH (21:50)
[2023-04-02] MEDS: DOCUSATE SODIUM 100 MG CAPSULE PO SCH (21:51)
[2023-04-02] MEDS: ZOLPIDEM TARTRATE 5 MG TABLET PO PRN (22:03)
--- NOTE | 2023-04-02 22:04 | NUR ---
RN NOTES: INSOMNIA PT. C/O UNABLE TO SLEEP PRN AMBIEN 5 MG PO GIVEN PER NURSE ASSESSMENT, WILL CONTINUE TO MONITOR.
--- NOTE | 2023-04-03 07:00 | NUR ---
NETWORK SERVICES PROJECT MANAGER OPENING NOTE PATIENT AWAKE, RESTING IN BED WITHOUT S/S OF DISCOMFORT. NO S/S OF RESPIRATORY DISTRESS NOTED. PATIENT ORIENTED TO NAME ONLY. SAFETY MEASURES IN PLACE. BED LOCKED TO THE LOWEST POSITION, SIDE RAILS UP X4. BED ALARM ON . CONT. TO MONITOR.
[2023-04-03 08:00] VITALS: BP 119/92; TEMP 97.8
--- NOTE | 2023-04-03 08:00 | NUR ---
RN-CO: DR CARRANZA GAVE AN ORDER TO DISCONTINUE HOLD AND DISCHARGE PT TODAY.
--- NOTE | 2023-04-03 08:07 | NUR ---
SW Discharge Note: Patient will be discharged to [facility] [id number] [facility], [place] [address] ([phone]). Please arrange ambulance transportation at 1PM. Spoke with Marion, Admin Coordinator at the facility who states they are ready to accept the patient today. SW unable to leave voicemail for father Varun ([phone]) and number not working. Patient is alert and oriented x1. Patient denies any suicidal or homicidal ideation. Patient will follow-up at the facility with Dr. Fuller (psychiatrist) [address] [address]; ([phone]) and (Sample Book Maker) Dr. Moreno [address] [facility] [address], [place] [address]; ([phone]). Patient presents with euthymic mood and congruent affect.
[2023-04-03] MEDS: Z GUARD REMEDY 4 OZ OINT TP SCH (09:00)
[2023-04-03] MEDS: CLOTRIMAZOLE 1% 15 GM TUBE TP SCH (09:00)
--- NOTE | 2023-04-03 09:26 | NUR ---
RN-CO: DR GUTIERREZ MEDICALLY CLEARED PATIENT FOR DISCHARGE AND ORDERED TO CONTINUE ROUTINE MEDS AND PRN.
[2023-04-03] MEDS: FERROUS SULFATE (325 MG) 325 MG/TAB TABLET PO SCH (09:57)
[2023-04-03] MEDS: SENNOSIDES 8.6 MG TABLET PO SCH (09:57)
[2023-04-03] MEDS: GABAPENTIN 100 MG CAPSULE PO SCH ×2 (09:57→13:24)
[2023-04-03] MEDS: OLANZAPINE 2.5 MG TABLET PO SCH ×2 (09:58→13:25)
[2023-04-03] MEDS: LEVETIRACETAM (250 MG) 250 MG TABLET PO SCH (09:59)
--- NOTE | 2023-04-03 13:15 | NUR ---
NURSING ATTENDANT DISCHARGE NOTE PATIENT IS ALERT, ORIENTED X1. PATIENT DENIES ANY SUICIDAL OR HOMICIDAL IDEATION. PATIENT WILL FOLLOW-UP AT THE FACILITY WITH DR. CARRANZA(PSYCHIATRIST) AND WITH DR. GRIMALDO(PANEL WIRER). PATIENT CALM AND NO S/S OF DISCOMFORT NOTED, DENIES PAIN.
--- NOTE | 2023-04-03 13:35 | NUR ---
POT SANDER DISCHARGE NOTE PATIENT IS STABLE FOR DISCHARGE PER DOCTOR CARRANZA (PSYCHIATRIST), PATIENT IS GOING TO [facility] [address] [place] [address] ([phone]). VIA AMBULANCE, ACCOMPANIED BY TWO COMPUTER TESTER. REPORT GIVEN TO COMPUTER TESTER AND ALSO TO PRISCA HENDRICKSON AT [facility]. B/P 119/92 HE 97 RESP 16 TEMP 97.8. NO S/S OF DISCOMFORT NOTED, 1300 SCHEDULE MEDICATION WERE ADMINISTERED PRIOR DISCHARGED. PATIENT VERY CALM, FOLLOWING SIMPLE COMMANDS. SKIN PICTURES WERE TAKEN PER HOSPITAL PROTOCOL. NO S/S OF ASPIRATION NOTED. NO S/S OF RESPIRATORY DISTRESS NOTED.
== END 2023-04-03 13:40 | DRG 885 ==
LOC: ER 18:08 → GPS 23:31
PROVIDERS: ADMIT Psychiatry & Neurology Psychiatry; ATTEND Nurse Practitioner Acute Care
DX: F29 Unspecified psychosis not due to a substance or known physiological condition (principal); N17.0 Acute kidney failure with tubular necrosis; G93.41 Metabolic encephalopathy; E44.1 Mild protein-calorie malnutrition; N39.0 Urinary tract infection, site not specified; R64 Cachexia; F25.0 Schizoaffective disorder, bipolar type; E66.01 Morbid (severe) obesity due to excess calories; E88.09 Other disorders of plasma-protein metabolism, not elsewhere classified; J44.9 Chronic obstructive pulmonary disease, unspecified; G20 Parkinson's disease; I10 Essential (primary) hypertension; G40.909 Epilepsy, unspecified, not intractable, without status epilepticus; B96.20 Unspecified Escherichia coli [E. coli] as the cause of diseases classified elsewhere; Z73.6 Limitation of activities due to disability; F02.80 Dementia in other diseases classified elsewhere, unspecified severity, without behavioral disturbance, psychotic disturbance, mood disturbance, and anxiety; F41.9 Anxiety disorder, unspecified; R53.1 Weakness; Z87.440 Personal history of urinary (tract) infections; Z86.16 Personal history of COVID-19; E78.5 Hyperlipidemia, unspecified; Z68.24 Body mass index [BMI] 24.0-24.9, adult
CPT/HCPCS: 36415; 76770-TC; 80048-TC; 80061-TC; 80076-TC; 81001; 82570-TC; 82962-TC; 84300-TC; 84443-TC; 85025-TC; 87081-TC; 87086-TC; 92526; 92611-TC; 97112-TC; 97530-TC; G0480; J0696; J1953; J3490; J7030; J7060

== ENCOUNTER 2023-10-24 16:02 | Inpatient (IN) | payer MEDICARE, OTHER ==
[~2023-10-24] VITALS: Ht 177.8 cm; Wt 70.8 kg
[~2023-10-24 16:02] MED LIST changes: +CRAN425C6 PO; -CYPR4TAB44 PO; +LACT10SO3 PO; -LORA-259 PO; -OLAN10TA3 PO; -RISP0.2515 PO; -SPIR25TA PO
[2023-10-24] MEDS ORDERED: APIX5TAB PO (16:54)
[2023-10-24] MEDS ORDERED: DIVA125C5 PO (16:54)
[2023-10-24] MEDS ORDERED: LORA-259 PO (16:54)
[2023-10-24] MEDS ORDERED: AMIN30LI2 PO (16:54)
[2023-10-24] MEDS ORDERED: OLAN7.5T3 PO (16:54)
[2023-10-24] MEDS ORDERED: FURO-145 PO (16:54)
[2023-10-24] MEDS ORDERED: RISP0.2515 PO (16:54)
[2023-10-24] MEDS ORDERED: ALBU2.5V38 IH (16:54)
[2023-10-24 17:34] LABS: EOSINOPHILS # (AUTO) 0.1 K/uL (0.0-0.7); MEAN CORPUSCULAR HGB CONC 31 g/dl (31.0-36.0); RED CELL DISTRIBUTION WIDTH 16.2 % (11.5-15.0)
[2023-10-24 17:52] LABS: ALBUMIN 3.2 g/dL (3.4-5.0); BILIRUBIN,TOTAL 0.2 mg/dL (0.2-1.0); CALCIUM, SERUM 8.8 mg/dL (8.5-10.1); CREATININE 1.3 mg/dL (0.6-1.3); TOTAL PROTEIN, SERUM 7.7 g/dL (6.4-8.2)
[2023-10-24 18:15] LABS: NUCLEATED RED BLOOD CELLS 0.1 /100WBC (0.0-0.0)
[2023-10-24 18:39] LABS: MEAN CORPUSCULAR HEMOGLOBIN 22 PG (26.0-33.0); MEAN CORPUSCULAR VOLUME 71 fL (80-96)
[2023-10-24 18:40] LABS: LYMPHOCYTES % (AUTO) 43.5 % (20.0-44.0); NEUTROPHILS % (AUTO) 44.4 % (43.0-81.0)
[2023-10-24 18:41] LABS: BASOPHILS % (AUTO) 0.5 % (0.0-2.0); EOSINOPHILS % (AUTO) 2.6 % (0.0-6.0); LYMPHOCYTES # (AUTO) 2.2 K/uL (0.8-4.8); MONOCYTES # (AUTO) 0.4 K/uL (0.1-1.30); NEUTROPHILS # (AUTO) 2.2 K/uL (1.8-8.9)
[2023-10-24 18:45] LABS: HEMATOCRIT 38 % (39-51); HEMOGLOBIN 11.9 g/dL (13.5-17.5); PLATELET COUNT (AUTO) 210 K/uL (150-450); RED BLOOD CELL COUNT(AUTO) 5.38 MIL/uL (4.5-6.0)
[2023-10-24 19:20] LABS: APPEARANCE,URINE SLIGHTLY CLOUDY (CLEAR); COLOR,URINE YELLOW (YELLOW)
[2023-10-24 19:21] LABS: BILIRUBIN,URINE NEGATIVE (NEGATIVE); BLOOD, URINE NEGATIVE Ery/uL (NEGATIVE); KETONES,URINE NEGATIVE (NEGATIVE); LEUKOCYTE ESTERASE ,URINE 1+ (NEGATIVE); NITRITE, URINE NEGATIVE (NEGATIVE); PROTEIN,URINE TRACE mg/dl (NEGATIVE); UGLUCOSE NEGATIVE (NEGATIVE); UROBILINOGEN,URINE 0.2 EU/dL (0.2)
[2023-10-24 19:25] LABS: ANISOCYTOSIS 1+; EOSINOPHILS % (MANUAL) 5 % (0-4); LYMPHOCYTES % (MANUAL) 44 % (16-48); MONOCYTES % (MANUAL) 4 % (0-11.0); NEUTROPHILS % (MANUAL) 47 (42-76); PLATELET ESTIMATE ADEQUATE
[2023-10-24 19:26] LABS: OVALOCYTES 1+; ROULEAUX 1+
[2023-10-24 19:30] LABS: ADD URINE CULTURE YES; BACTERIA,URINE 1+ /HPF (None Seen); RBC,URINE 0-2 /HPF (0-2); SQUAMOUS EPITHELIAL CELL,UR 0-2 /HPF (None Seen)
[2023-10-24] MEDS ORDERED: ACETAMINOPHEN 325 MG TABLET PO PRN (21:00)
[2023-10-24] MEDS ORDERED: ALBUTEROL FS 2.5 MG/3 ML VIAL.NEB IH PRN (21:00)
[2023-10-24] MEDS ORDERED: ZOLPIDEM TARTRATE 5 MG TABLET PO PRN (21:00)
[2023-10-24] MEDS ORDERED: ONDANSETRON HCL/PF 4 MG/2 ML VIAL IVP PRN (21:00)
[2023-10-24] MEDS ORDERED: MAG HYDROX/AL HYDROX/SIMETH 30 ML UDC PO PRN (21:00)
[2023-10-24] MEDS ORDERED: MAGNESIUM HYDROXIDE 30 ML UDC PO PRN (21:00)
[2023-10-24] MEDS ORDERED: LEVETIRACETAM SOL (5 ML) 100 MG/ML UDC PO SCH (21:00)
[2023-10-24] MEDS ORDERED: Z GUARD REMEDY 4 OZ OINT TP PRN (21:00)
[2023-10-24 21:55] VITALS: BP 114/81; TEMP 97.5; O2SAT 96
[2023-10-24 22:00] VITALS: BP 114/81; TEMP 97.5; O2SAT 96
[2023-10-25] MEDS: IV NS 0.9% 1,000 ML IV PRN ×2 (00:03→22:39)
[2023-10-25] MEDS: risperiDONE 0.25 MG TABLET PO SCH ×2 (00:35→22:31)
[2023-10-25] MEDS: ATORVASTATIN 10 MG TABLET PO SCH ×2 (00:35→22:30)
[2023-10-25] MEDS: APIXABAN 5 MG TABLET PO SCH ×3 (00:36→22:29)
[2023-10-25] MEDS: LISINOPRIL (5MG) 5 MG TABLET PO SCH ×2 (00:37→22:31)
[2023-10-25] MEDS ORDERED: OLANZAPINE 10 MG VIAL IM ONE (02:00)
[2023-10-25] MEDS ORDERED: LEVOFLOXACIN 500 MG /D5W 100ML 100 ML IV ONE (02:22)
[2023-10-25] MEDS: LEVOFLOXACIN 500 MG /D5W 100ML 500 MG in PREMIX 1 EA IV SCH ×2 (02:23→21:12)
[2023-10-25 07:18] LABS: BASOPHILS % (AUTO) 0.4 % (0.0-2.0); EOSINOPHILS # (AUTO) 0.1 K/uL (0.0-0.7); EOSINOPHILS % (AUTO) 1.4 % (0.0-6.0); HEMATOCRIT 35 % (39-51); HEMOGLOBIN 11.2 g/dL (13.5-17.5); LYMPHOCYTES # (AUTO) 1.9 K/uL (0.8-4.8); LYMPHOCYTES % (AUTO) 35.4 % (20.0-44.0); MEAN CORPUSCULAR HEMOGLOBIN 22 PG (26.0-33.0); MEAN CORPUSCULAR HGB CONC 32 g/dl (31.0-36.0); MEAN CORPUSCULAR VOLUME 71 fL (80-96); MONOCYTES # (AUTO) 0.4 K/uL (0.1-1.30); MONOCYTES % (AUTO) 8.3 % (2.0-12.0); NEUTROPHILS # (AUTO) 2.9 K/uL (1.8-8.9); NEUTROPHILS % (AUTO) 54.5 % (43.0-81.0); PLATELET COUNT (AUTO) 221 K/uL (150-450); RED BLOOD CELL COUNT(AUTO) 5.03 MIL/uL (4.5-6.0); RED CELL DISTRIBUTION WIDTH 15.5 % (11.5-15.0); WHITE BLOOD COUNT (AUTO) 5.4 K/uL (4.3-11.0)
[2023-10-25 08:00] VITALS: BP 115/81; TEMP 97.9; O2SAT 98
[2023-10-25 08:17] LABS: CALCIUM, SERUM 8.7 mg/dL (8.5-10.1); MAGNESIUM 2.6 mg/dL (1.8-2.4); PHOSPHORUS 2.6 mg/dL (2.5-4.9); POTASSIUM 4.3 mmol/L (3.5-5.1)
[2023-10-25] MEDS: LACTULOSE 10 G/15 ML UDC (PYXIS) PO SCH (08:56)
[2023-10-25] MEDS: DOCUSATE SODIUM 100 MG CAPSULE PO SCH (08:56)
[2023-10-25] MEDS: FERROUS SULFATE (325 MG) 325 MG/TAB TABLET PO SCH (08:57)
[2023-10-25] MEDS: DIVALPROEX SODIUM 125 MG CAP.SPRINK PO SCH ×3 (08:57→16:15)
[2023-10-25] MEDS ORDERED: CRANBERRY EXT/C/L. SPOROGENES 405 MG/TAB TABLET PO SCH (09:00)
[2023-10-25] MEDS: SENNOSIDES 8.6 MG TABLET PO SCH ×2 (09:00→16:15)
[2023-10-25] MEDS: GABAPENTIN 100 MG CAPSULE PO SCH ×3 (09:00→16:15)
[2023-10-25] MEDS: LEVETIRACETAM (250 MG) 250 MG TABLET PO SCH ×2 (09:00→20:47)
[2023-10-25] MEDS: OLANZAPINE 2.5 MG TABLET PO SCH (09:00)
[2023-10-25 16:00] VITALS: BP 102/89; TEMP 97.9; O2SAT 94
[2023-10-25] MEDS: VITAMIN B COMP W-C 1 TAB TABLET PO SCH (17:05)
[2023-10-25] MEDS: PROSOURCE / PROSTAT (PYXIS) 30 ML UDC PO SCH (17:05)
[2023-10-25] MEDS: CHOLECALCIFEROL 1,000 UNIT TABLET (VIT D3) PO SCH (17:05)
[2023-10-25 20:00] VITALS: BP 130/84; TEMP 97.5; O2SAT 99
[2023-10-26 08:16] VITALS: BP 119/78; TEMP 97.7; O2SAT 97
[2023-10-26] MEDS: GABAPENTIN 100 MG CAPSULE PO SCH ×3 (08:40→16:45)
[2023-10-26] MEDS: OLANZAPINE 2.5 MG TABLET PO SCH (08:40)
[2023-10-26] MEDS: LEVETIRACETAM (250 MG) 250 MG TABLET PO SCH ×2 (08:40→21:06)
[2023-10-26] MEDS: DIVALPROEX SODIUM 125 MG CAP.SPRINK PO SCH ×3 (08:40→16:45)
[2023-10-26] MEDS: APIXABAN 5 MG TABLET PO SCH ×2 (08:42→21:05)
[2023-10-26] MEDS: FERROUS SULFATE (325 MG) 325 MG/TAB TABLET PO SCH (08:43)
[2023-10-26] MEDS: DOCUSATE SODIUM 100 MG CAPSULE PO SCH (08:44)
[2023-10-26] MEDS: SENNOSIDES 8.6 MG TABLET PO SCH ×2 (08:44→16:45)
[2023-10-26] MEDS: LACTULOSE 10 G/15 ML UDC (PYXIS) PO SCH (08:44)
[2023-10-26] MEDS: IV NS 0.9% 1,000 ML IV PRN (14:18)
[2023-10-26 16:34] VITALS: BP 120/83; TEMP 97.8; O2SAT 98
[2023-10-26] MEDS: CHOLECALCIFEROL 1,000 UNIT TABLET (VIT D3) PO SCH (17:09)
[2023-10-26] MEDS: PROSOURCE / PROSTAT (PYXIS) 30 ML UDC PO SCH (17:09)
[2023-10-26] MEDS: VITAMIN B COMP W-C 1 TAB TABLET PO SCH (17:09)
[2023-10-26 20:00] VITALS: BP 119/95; TEMP 97.5; O2SAT 96
[2023-10-26] MEDS: LEVOFLOXACIN 500 MG /D5W 100ML 500 MG in PREMIX 1 EA IV SCH (20:51)
[2023-10-26] MEDS: ATORVASTATIN 10 MG TABLET PO SCH (21:05)
[2023-10-26] MEDS: risperiDONE 0.25 MG TABLET PO SCH (21:06)
[2023-10-26] MEDS: LISINOPRIL (5MG) 5 MG TABLET PO SCH (21:06)
[2023-10-27] MEDS: IV NS 0.9% 1,000 ML IV PRN (05:10)
[2023-10-27 07:14] LABS: BASOPHILS % (AUTO) 0.3 % (0.0-2.0); EOSINOPHILS # (AUTO) 0.1 K/uL (0.0-0.7); EOSINOPHILS % (AUTO) 2.6 % (0.0-6.0); HEMATOCRIT 35 % (39-51); HEMOGLOBIN 11.3 g/dL (13.5-17.5); LYMPHOCYTES # (AUTO) 1.6 K/uL (0.8-4.8); LYMPHOCYTES % (AUTO) 31.6 % (20.0-44.0); MEAN CORPUSCULAR HEMOGLOBIN 23 PG (26.0-33.0); MEAN CORPUSCULAR HGB CONC 32 g/dl (31.0-36.0); MEAN CORPUSCULAR VOLUME 70 fL (80-96); MONOCYTES # (AUTO) 0.5 K/uL (0.1-1.30); MONOCYTES % (AUTO) 9.1 % (2.0-12.0); NEUTROPHILS # (AUTO) 2.9 K/uL (1.8-8.9); NEUTROPHILS % (AUTO) 56.4 % (43.0-81.0); PLATELET COUNT (AUTO) 195 K/uL (150-450); RED BLOOD CELL COUNT(AUTO) 5.01 MIL/uL (4.5-6.0); RED CELL DISTRIBUTION WIDTH 15.8 % (11.5-15.0); WHITE BLOOD COUNT (AUTO) 5.2 K/uL (4.3-11.0)
[2023-10-27 07:30] VITALS: BP 119/77; TEMP 97.5; O2SAT 99
[2023-10-27 07:37] LABS: CALCIUM, SERUM 8.9 mg/dL (8.5-10.1); CREATININE 0.9 mg/dL (0.6-1.3); POTASSIUM 3.8 mmol/L (3.5-5.1)
[2023-10-27] MEDS ORDERED: LEVO250T59 PO (09:07)
[2023-10-27] MEDS: OLANZAPINE 2.5 MG TABLET PO SCH (09:15)
[2023-10-27] MEDS: LACTULOSE 10 G/15 ML UDC (PYXIS) PO SCH (09:15)
[2023-10-27] MEDS: LEVETIRACETAM (250 MG) 250 MG TABLET PO SCH (09:16)
[2023-10-27] MEDS: GABAPENTIN 100 MG CAPSULE PO SCH ×2 (09:16→12:08)
[2023-10-27] MEDS: DIVALPROEX SODIUM 125 MG CAP.SPRINK PO SCH ×2 (09:16→12:08)
[2023-10-27] MEDS: SENNOSIDES 8.6 MG TABLET PO SCH (09:16)
[2023-10-27] MEDS: DOCUSATE SODIUM 100 MG CAPSULE PO SCH (09:16)
[2023-10-27] MEDS: FERROUS SULFATE (325 MG) 325 MG/TAB TABLET PO SCH (09:16)
[2023-10-27] MEDS: APIXABAN 5 MG TABLET PO SCH (09:18)
[2023-10-27] MEDS ORDERED: OLANZAPINE 2.5 MG TABLET PO SCH (17:00)
[2023-10-27] MEDS ORDERED: LEVOFLOXACIN (250MG) 250 MG TABLET PO SCH (21:00)
[2023-10-27] MEDS ORDERED: MIRTAZAPINE 15 MG TABLET PO SCH (22:00)
== END 2023-10-27 14:25 | DRG 689 ==
LOC: ER 16:02 → MED 21:42
PROVIDERS: ADMIT Nurse Practitioner Acute Care; ATTEND Internal Medicine
DX: N39.0 Urinary tract infection, site not specified (principal); G93.41 Metabolic encephalopathy; E44.0 Moderate protein-calorie malnutrition; I82.412 Acute embolism and thrombosis of left femoral vein; I82.432 Acute embolism and thrombosis of left popliteal vein; R62.7 Adult failure to thrive; E78.5 Hyperlipidemia, unspecified; E88.09 Other disorders of plasma-protein metabolism, not elsewhere classified; I10 Essential (primary) hypertension; Z79.899 Other long term (current) drug therapy; Z88.0 Allergy status to penicillin; Z68.22 Body mass index [BMI] 22.0-22.9, adult; Z20.822 Contact with and (suspected) exposure to COVID-19; B95.1 Streptococcus, group B, as the cause of diseases classified elsewhere; F25.0 Schizoaffective disorder, bipolar type; F02.80 Dementia in other diseases classified elsewhere, unspecified severity, without behavioral disturbance, psychotic disturbance, mood disturbance, and anxiety; G20.A1 Parkinson's disease without dyskinesia, without mention of fluctuations; G40.909 Epilepsy, unspecified, not intractable, without status epilepticus; Z88.6 Allergy status to analgesic agent
CPT/HCPCS: 36415; 71045-TC; 80048-TC; 80076-TC; 81001; 83735-TC; 84100-TC; 85025-TC; 87081-TC; 87086-TC; 92526; 92611-TC; 93971-TC; A4216; A4223; G0378; J1953; J1956; J3490; J7030

== ENCOUNTER 2025-03-17 18:02 | Inpatient (IN) | payer MEDICARE, OTHER ==
[~2025-03-17] VITALS: Ht 177.8 cm; Wt 79.4 kg
[~2025-03-17 18:02] MED LIST changes: +ALBU2.5V38 IH; +AMIN30LI2 PO; +APIX5TAB PO; -DIVA-78 PO; +DIVA125C5 PO; +LEVO250T59 PO; +LORA-259 PO; +OLAN7.5T3 PO; +RISP0.2515 PO
[2025-03-17 18:56] LABS: PLATELET COUNT (AUTO) 238 K/uL (150-450); RED BLOOD CELL COUNT(AUTO) 5.57 MIL/uL (4.5-6.0); RED CELL DISTRIBUTION WIDTH 15.3 % (11.5-15.0); WHITE BLOOD COUNT (AUTO) 6.7 K/uL (4.3-11.0)
[2025-03-17 19:04] LABS: CALCIUM, SERUM 8.9 mg/dL (8.5-10.1); CREATININE 1.2 mg/dL (0.6-1.3); SODIUM SERUM 143 mmol/L (136-145); UREA NITROGEN, BLOOD 34 mg/dL (7-18)
[2025-03-17 19:10] LABS: ALCOHOL, BLOOD < 3 mg/dL (0-10); ASPARTATE AMINOTRANSFERASE 15 U/L (15-37); TOTAL PROTEIN, SERUM 8.4 g/dL (6.4-8.2)
[2025-03-17] MEDS ORDERED: SENN-291 PO (19:13)
[2025-03-17] MEDS ORDERED: FURO-144 PO (19:13)
[2025-03-17] MEDS ORDERED: MIRT7.5T10 PO (19:13)
[2025-03-17] MEDS ORDERED: TRAM50TA2 PO (19:13)
[2025-03-17] MEDS ORDERED: OLANZAPINE 10 MG VIAL IM ONE (19:27)
[2025-03-17] MEDS: OLANZAPINE 10 MG VIAL IM ONE (19:30)
[2025-03-17 19:47] LABS: APPEARANCE,URINE CLOUDY (CLEAR); BLOOD, URINE TRACE-INTA Ery/uL (NEGATIVE); LEUKOCYTE ESTERASE ,URINE 3+ (NEGATIVE); NITRITE, URINE POSITIVE (NEGATIVE); UGLUCOSE NEGATIVE (NEGATIVE)
[2025-03-17 19:57] LABS: AMPHETAMINE, URINE NEGATIVE (NEGATIVE); BARBITURATE, URINE NEGATIVE (NEGATIVE); BENZODIAZEPINE, URINE NEGATIVE (NEGATIVE); CANNABINOID, URINE NEGATIVE (NEGATIVE); COCCAINE, URINE NEGATIVE (NEGATIVE); OPIATE, URINE NEGATIVE (NEGATIVE)
[2025-03-17 20:03] LABS: SQUAMOUS EPITHELIAL CELL,UR Rare /HPF (None Seen); TRIPLE PHOSPHATE CRYSTAL,UR Few /HPF (None Seen)
[2025-03-17 20:06] LABS: ADD URINE CULTURE YES
[2025-03-17] MEDS ORDERED: CEPHALEXIN MONOHYDRATE 500 MG CAPSULE PO ONE ×2 (22:00→22:02)
[2025-03-17] MEDS: CEPHALEXIN MONOHYDRATE 500 MG CAPSULE PO ONE (22:06)
[2025-03-17] MEDS ORDERED: ALBUTEROL FS 2.5 MG/3 ML VIAL.NEB INH PRN (23:00)
[2025-03-17] MEDS ORDERED: BISACODYL SUPP (10 MG) 10 MG/SUPP.RECT SUPP.RECT RC PRN (23:00)
[2025-03-17] MEDS ORDERED: MAG HYDROX/AL HYDROX/SIMETH 30 ML UDC PO PRN (23:30)
[2025-03-17] MEDS ORDERED: LORAZEPAM 1 MG TABLET PO PRN (23:30)
[2025-03-17] MEDS ORDERED: MAGNESIUM HYDROXIDE 30 ML UDC PO PRN (23:30)
[2025-03-18] MEDS: BLOOD SUGAR DIAGNOSTIC 1 EACH STRIP IN ONE (00:22)
[2025-03-18] MEDS: ZOLPIDEM TARTRATE 5 MG TABLET PO PRN (00:26)
[2025-03-18 01:19] VITALS: BP 129/74; TEMP 98; O2SAT 98
[2025-03-18 01:43] VITALS: BP 132/76; TEMP 98; O2SAT 98
[2025-03-18] MEDS: LORAZEPAM 1 MG TABLET PO PRN (02:51)
[2025-03-18] MEDS ORDERED: Z GUARD REMEDY 4 OZ OINT TP PRN (06:30)
[2025-03-18 08:00] VITALS: BP 131/99; TEMP 98.7; O2SAT 94
[2025-03-18] MEDS: CEPHALEXIN MONOHYDRATE 500 MG CAPSULE PO SCH (08:26)
[2025-03-18] MEDS: FERROUS SULFATE (325 MG) 325 MG/TAB TABLET PO SCH (08:26)
[2025-03-18] MEDS: GABAPENTIN 100 MG CAPSULE PO SCH (08:26)
[2025-03-18] MEDS: LEVETIRACETAM SOL (5 ML) 100 MG/ML UDC PO SCH (08:26)
[2025-03-18] MEDS: SENNOSIDES/DOCUSATE SODIUM 1 TAB TABLET PO SCH (08:26)
[2025-03-18] MEDS: FUROSEMIDE 40 MG TABLET PO SCH (08:26)
[2025-03-18] MEDS: APIXABAN 5 MG TABLET PO SCH (08:27)
[2025-03-18] MEDS: Z GUARD REMEDY 4 OZ OINT TP SCH (08:27)
[2025-03-18] MEDS ORDERED: Medication Not On Formulary EA (Cranberry Extract (Cranberry) 425 MG) PO SCH (09:00)
[2025-03-18] MEDS: NEOMY SULF/BACITRAC ZN/POLY 15 GM TUBE TP SCH (11:40)
[2025-03-18 16:00] VITALS: BP 127/90; TEMP 98.6; O2SAT 96
[2025-03-18] MEDS: CHOLECALCIFEROL 1,000 UNIT TABLET (VIT D3) PO SCH (17:36)
[2025-03-18] MEDS: VITAMIN B COMP W-C 1 TAB TABLET PO SCH (17:36)
[2025-03-18 20:00] VITALS: BP 119/83; TEMP 98.4; O2SAT 98
[2025-03-18] MEDS: OLANZAPINE 2.5 MG TABLET PO SCH (21:23)
[2025-03-18] MEDS: DIVALPROEX SODIUM 125 MG TABLET.DR PO SCH (21:23)
[2025-03-18] MEDS: ATORVASTATIN 10 MG TABLET PO SCH (21:25)
[2025-03-18] MEDS: LISINOPRIL (5MG) 5 MG TABLET PO SCH (21:25)
[2025-03-19 08:00] VITALS: BP 120/67; TEMP 97.7; O2SAT 94
[2025-03-19 08:34] LABS: CALCIUM, SERUM 9.2 mg/dL (8.5-10.1); CREATININE 1.2 mg/dL (0.6-1.3); SODIUM SERUM 143.0 mmol/L (136-145); UREA NITROGEN, BLOOD 36.0 mg/dL (7-18)
[2025-03-19 08:41] LABS: LDL 96.0 mg/dL (0-99)
[2025-03-19 08:55] LABS: PLATELET COUNT (AUTO) 230 K/uL (150-450); RED BLOOD CELL COUNT(AUTO) 5.94 MIL/uL (4.5-6.0); RED CELL DISTRIBUTION WIDTH 15.7 % (11.5-15.0); WHITE BLOOD COUNT (AUTO) 5.6 K/uL (4.3-11.0)
[2025-03-19 13:03] LABS: EOSINOPHILS % (MANUAL) 3 % (0-4); LYMPHOCYTES % (MANUAL) 21 % (16-48); MONOCYTES % (MANUAL) 8 % (0-11.0); NEUTROPHILS % (MANUAL) 68 (42-76); PLATELET ESTIMATE ADEQUATE
[2025-03-19 16:00] VITALS: BP 130/78; TEMP 97.9; O2SAT 97
[2025-03-19 21:18] VITALS: BP 131/69; TEMP 97.9; O2SAT 97
[2025-03-20 08:00] VITALS: BP 90/60; TEMP 97.8; O2SAT 96
[2025-03-20] MEDS: MUPIROCIN OINT 2% 22 GM TUBE NS SCH (08:26)
[2025-03-20] MEDS: OLANZAPINE 2.5 MG TABLET PO PRN (09:44)
[2025-03-20 16:04] VITALS: BP 113/67; TEMP 97.6; O2SAT 96
[2025-03-20 20:31] VITALS: BP 117/90; TEMP 98.1; O2SAT 99
[2025-03-21 08:00] VITALS: BP 100/70; TEMP 98.6; O2SAT 97
[2025-03-21] MEDS: ACETAMINOPHEN 325 MG TABLET PO PRN (08:55)
[2025-03-21 16:00] VITALS: BP 110/78; TEMP 97.8; O2SAT 99
[2025-03-21] MEDS: DIVALPROEX SODIUM 125 MG TABLET.DR PO SCH (20:10)
[2025-03-21] MEDS: OLANZAPINE 2.5 MG TABLET PO SCH (20:11)
[2025-03-21 20:13] VITALS: BP 106/57; TEMP 97.8; O2SAT 99
[2025-03-22 08:10] VITALS: BP 148/84; TEMP 97.8; O2SAT 98
[2025-03-22 16:08] VITALS: BP 100/62; TEMP 98.1; O2SAT 98
[2025-03-22 20:15] VITALS: BP 138/98; TEMP 98.2; O2SAT 98
[2025-03-23 08:00] VITALS: BP 101/68; TEMP 98.6; O2SAT 98
[2025-03-23 16:00] VITALS: BP 116/99; TEMP 97.5; O2SAT 98
[2025-03-23 20:18] VITALS: BP 96/68; TEMP 98.9; O2SAT 97
[2025-03-23] MEDS: ZOLPIDEM TARTRATE 5 MG TABLET PO PRN (23:26)
[2025-03-24 08:00] VITALS: BP 120/89; TEMP 98.7; O2SAT 95
[2025-03-24] MEDS: DIVALPROEX SODIUM 125 MG CAP.SPRINK PO SCH (14:15)
[2025-03-24 16:00] VITALS: BP 123/80; TEMP 98; O2SAT 95
[2025-03-24 20:00] VITALS: BP 122/73; TEMP 97.8; O2SAT 98
[2025-03-24] MEDS: OLANZAPINE 10 MG TABLET PO SCH (21:09)
[2025-03-25 08:00] VITALS: BP 100/62; TEMP 97.7; O2SAT 99
[2025-03-25] MEDS: OLANZAPINE 2.5 MG TABLET PO SCH (09:05)
[2025-03-25] MEDS: LEVETIRACETAM (250 MG) 250 MG TABLET PO SCH (09:06)
[2025-03-25] MEDS: ENOXAPARIN SODIUM 80 MG/0.8 ML DISP.SYRIN SQ SCH (09:07)
[2025-03-25] MEDS: LORAZEPAM 1 MG TABLET PO STA (14:50)
[2025-03-25 16:03] VITALS: BP 110/78; TEMP 98; O2SAT 97
[2025-03-25 22:54] VITALS: BP 105/65; TEMP 97.9; O2SAT 98
[2025-03-26 08:00] VITALS: BP 126/76; TEMP 97.9; O2SAT 96
[2025-03-26 16:00] VITALS: BP_SYST 126; BP_SYST 134; BP_DIAS 59; BP_DIAS 87; TEMP 97.9; TEMP 98; O2SAT 100; O2SAT 99
[2025-03-26 20:14] VITALS: BP 116/81; TEMP 98.2; O2SAT 99
[2025-03-27 08:00] VITALS: BP 138/78; TEMP 98.1; O2SAT 97
[2025-03-27 08:08] LABS: CALCIUM, SERUM 9.0 mg/dL (8.5-10.1); CREATININE 1.0 mg/dL (0.6-1.3); SODIUM SERUM 145.0 mmol/L (136-145); UREA NITROGEN, BLOOD 24.0 mg/dL (7-18)
[2025-03-27 08:24] LABS: PLATELET COUNT (AUTO) 273 K/uL (150-450); RED BLOOD CELL COUNT(AUTO) 5.19 MIL/uL (4.5-6.0); RED CELL DISTRIBUTION WIDTH 15.3 % (11.5-15.0); WHITE BLOOD COUNT (AUTO) 4.8 K/uL (4.3-11.0)
[2025-03-27 12:41] LABS: LYMPHOCYTES % (MANUAL) 38 % (16-48); NEUTROPHILS % (MANUAL) 45 (42-76)
[2025-03-27 12:42] LABS: EOSINOPHILS % (MANUAL) 5 % (0-4); MONOCYTES % (MANUAL) 12 % (0-11.0)
[2025-03-27 12:48] LABS: PLATELET ESTIMATE ADEQUATE
[2025-03-27] MEDS: MINERAL OIL 133 ML (PYXIS) 1 EA ENEMA RC ONE (13:49)
[2025-03-27 16:00] VITALS: BP 128/78; TEMP 97.7; O2SAT 96
[2025-03-27 20:16] VITALS: BP 102/70; TEMP 97.8; O2SAT 96
[2025-03-27] MEDS: POLYETHYLENE GLYCOL 3350 17 GM POWD.PACK PO SCH (21:36)
[2025-03-28 08:00] VITALS: BP 143/100; TEMP 98.6; O2SAT 99
[2025-03-28 16:00] VITALS: BP 109/78; TEMP 98.8; O2SAT 98
[2025-03-28 19:34] LABS: PLATELET COUNT (AUTO) 309 K/uL (150-450); RED BLOOD CELL COUNT(AUTO) 5.40 MIL/uL (4.5-6.0); RED CELL DISTRIBUTION WIDTH 15.3 % (11.5-15.0); WHITE BLOOD COUNT (AUTO) 4.8 K/uL (4.3-11.0)
[2025-03-28 20:00] VITALS: BP 92/78; TEMP 97.9; O2SAT 99
[2025-03-28 20:04] LABS: IRON, SERUM 37.0 ug/dl (50-175)
[2025-03-28 20:12] LABS: FREE PSA 0.15 ng/mL (0.00-45); PROSTATE SPECIFIC ANTIGEN SCR 1.49 ng/mL (0.00-4.00)
[2025-03-28 20:20] VITALS: BP 92/78; TEMP 97.9; O2SAT 99
[2025-03-28] MEDS: ENOXAPARIN SODIUM 80 MG/0.8 ML DISP.SYRIN SQ ONE (20:38)
[2025-03-29 07:56] LABS: PLATELET COUNT (AUTO) 284 K/uL (150-450); RED BLOOD CELL COUNT(AUTO) 5.33 MIL/uL (4.5-6.0); RED CELL DISTRIBUTION WIDTH 15.4 % (11.5-15.0); WHITE BLOOD COUNT (AUTO) 6.9 K/uL (4.3-11.0)
[2025-03-29 08:00] VITALS: BP 98/83; TEMP 98; O2SAT 95
[2025-03-29] MEDS: DIVALPROEX SODIUM 125 MG CAP.SPRINK PO SCH (13:28)
[2025-03-29 13:44] LABS: APPEARANCE,URINE CLEAR (CLEAR); BLOOD, URINE NEGATIVE Ery/uL (NEGATIVE); LEUKOCYTE ESTERASE ,URINE 1+ (NEGATIVE); NITRITE, URINE NEGATIVE (NEGATIVE); UGLUCOSE NEGATIVE (NEGATIVE)
[2025-03-29 14:00] LABS: ADD URINE CULTURE YES; SQUAMOUS EPITHELIAL CELL,UR Moderate /HPF (None Seen)
[2025-03-29 16:06] VITALS: BP 105/79; TEMP 97.3; O2SAT 98
[2025-03-29 20:00] VITALS: BP 122/106; TEMP 97.9; O2SAT 96
[2025-03-30 06:07] LABS: FOLIC ACID 9.8 ng/mL (>3.0); IMMUNOGLOBULIN A, SERUM 451 mg/dL (61-437)
[2025-03-30 08:00] VITALS: BP 100/62; TEMP 97.9; O2SAT 97
[2025-03-30 08:07] LABS: FREE KAPPA LT CHAINS SERUM 42.7 mg/L (3.3-19.4); FREE LAMBDA LT CHAIN SERUM 24.0 mg/L (5.7-26.3); KAPPA/LAMBDA RATIO SERUM 1.78 (0.26-1.65)
[2025-03-30 16:00] VITALS: BP 100/62; TEMP 98.7; O2SAT 98
[2025-03-30 20:13] VITALS: BP 131/75; TEMP 98.1; O2SAT 100
[2025-03-31 03:07] LABS: *SPE A/G RATIO 0.9 (0.7-1.7); *SPE ALBUMIN 3.5 g/dL (2.9-4.4); *SPE ALPHA-1-GLOBULIN 0.3 g/dL (0.0-0.4); *SPE ALPHA-2-GLOBULIN 0.9 g/dL (0.4-1.0); *SPE BETA GLOBULIN 1.0 g/dL (0.7-1.3); *SPE GLOBULIN, TOTAL 3.9 g/dL (2.2-3.9); *SPE M-SPIKE Not Observed g/dL (Not Observed); *SPE PROTEIN TOTAL 7.4 g/dL (6.0-8.5); *SPEGAMMA GLOBULIN 1.7 g/dL (0.4-1.8)
[2025-03-31 08:11] VITALS: BP 138/86; TEMP 97.8; O2SAT 97
[2025-03-31 10:43] LABS: PLATELET COUNT (AUTO) 234 K/uL (150-450); RED BLOOD CELL COUNT(AUTO) 5.23 MIL/uL (4.5-6.0); RED CELL DISTRIBUTION WIDTH 15.9 % (11.5-15.0); WHITE BLOOD COUNT (AUTO) 4.2 K/uL (4.3-11.0)
[2025-03-31 11:05] LABS: CALCIUM, SERUM 8.8 mg/dL (8.5-10.1); CREATININE 1.0 mg/dL (0.6-1.3); PHOSPHORUS 2.8 mg/dL (2.5-4.9); SODIUM SERUM 144.0 mmol/L (136-145); UREA NITROGEN, BLOOD 19.0 mg/dL (7-18)
[2025-03-31 15:07] LABS: *ANTITHROMBIN III AG 116 % (72-124); *THROMBIN TIME 21.9 sec (0.0-23.0); *dRVVT 41.0 sec (0.0-47.0); ANTITHROMBIN III ACTIVITY 115 % (75-135)
[2025-03-31 16:00] VITALS: BP 122/74; TEMP 98; O2SAT 97
[2025-03-31 16:07] LABS: *CARD ANTI-CARDIOLIPIN AB IgG <9 GPL U/mL (0-14)
[2025-04-02 13:07] LABS: *CARD ANTI-CARDIOLIPIN AB IgM 15 MPL U/mL (0-12); IMMUNOGLOBULIN M, SERUM 146 mg/dL (20-172); PROTEIN C ACTIVITY 104 % (73-180)
== END 2025-03-31 13:55 | DRG 885 ==
LOC: ER 18:12 → GPS 22:03
PROVIDERS: ADMIT Psychiatry & Neurology Psychiatry
DX: F25.9 Schizoaffective disorder, unspecified (principal); G93.41 Metabolic encephalopathy; N39.0 Urinary tract infection, site not specified; I82.512 Chronic embolism and thrombosis of left femoral vein; I82.411 Acute embolism and thrombosis of right femoral vein; F01.53 Vascular dementia, unspecified severity, with mood disturbance; F01.511 Vascular dementia, unspecified severity, with agitation; K56.7 Ileus, unspecified; E78.5 Hyperlipidemia, unspecified; G40.909 Epilepsy, unspecified, not intractable, without status epilepticus; Z79.01 Long term (current) use of anticoagulants; Z79.899 Other long term (current) drug therapy; Z88.0 Allergy status to penicillin; Z88.6 Allergy status to analgesic agent; J44.9 Chronic obstructive pulmonary disease, unspecified; Z22.322 Carrier or suspected carrier of Methicillin resistant Staphylococcus aureus; B96.4 Proteus (mirabilis) (morganii) as the cause of diseases classified elsewhere; N40.0 Benign prostatic hyperplasia without lower urinary tract symptoms; Z91.199 Patient's noncompliance with other medical treatment and regimen due to unspecified reason; D50.9 Iron deficiency anemia, unspecified; G20.A1 Parkinson's disease without dyskinesia, without mention of fluctuations; I10 Essential (primary) hypertension; K52.9 Noninfective gastroenteritis and colitis, unspecified; K59.00 Constipation, unspecified; K21.9 Gastro-esophageal reflux disease without esophagitis; G47.00 Insomnia, unspecified
CPT/HCPCS: 36415; 71250-TC; 80048-TC; 80061-TC; 80076-TC; 80164-TC; 81001; 81240; 81241; 82378; 82607-TC; 82728-TC; 82784; 83540-TC; 83735-TC; 84100-TC; 84153-TC; 84154-TC; 84155; 84165; 84439-TC; 84443-TC; 85025-TC; 85300; 85301; 85303; 85613; 85670; 85705; 85732; 86147; 86334; 87081-TC; 87086-TC; 87186-TC; 93926-TC; 93970-TC; 97530-TC; 98960; G0480; J1650; J1953; J3490

== ENCOUNTER 2025-06-21 16:08 | Inpatient (IN) | payer MEDICARE, OTHER ==
[~2025-06-21] VITALS: Ht 177.8 cm; Wt 72.6 kg
[2025-06-21] VITALS: BP 151/123; TEMP 98.1; O2SAT 90
[~2025-06-21 16:08] MED LIST changes: -AMIN30LI2 PO; -DOCU100C36 PO; +FURO-144 PO; -LACT10SO3 PO; -LEVO250T59 PO; +MIRT7.5T10 PO; -SENN-261 PO; +SENN-291 PO; +TRAM50TA2 PO
[2025-06-21 16:41] LABS: PLATELET COUNT (AUTO) 259 K/uL (150-450); RED BLOOD CELL COUNT(AUTO) 5.52 MIL/uL (4.5-6.0); RED CELL DISTRIBUTION WIDTH 15.5 % (11.5-15.0); WHITE BLOOD COUNT (AUTO) 13.6 K/uL (4.3-11.0)
[2025-06-21] MEDS: IV LR 1000 ML 1,000 ML BAG IV ONE (16:45)
[2025-06-21 16:48] LABS: CALCIUM, SERUM 8.7 mg/dL (8.5-10.1); CREATININE 1.2 mg/dL (0.6-1.3); SODIUM SERUM 138.0 mmol/L (136-145); UREA NITROGEN, BLOOD 22.0 mg/dL (7-18)
[2025-06-21 16:54] LABS: ASPARTATE AMINOTRANSFERASE 11.0 U/L (15-37); TOTAL PROTEIN, SERUM 8.5 g/dL (6.4-8.2)
[2025-06-21 16:59] LABS: LACTIC ACID 1.6 mmol/L (0.4-2.0)
[2025-06-21] MEDS: MEROPENEM 500 MG in IV NS 0.9% 50 ML IV ONE (17:00)
[2025-06-21] MEDS: ACETAMINOPHEN 650 MG/SUPP.RECT RC ONE (17:00)
[2025-06-21 17:22] LABS: APPEARANCE,URINE CLEAR (CLEAR); BLOOD, URINE Moderate Ery/uL (NEGATIVE); LEUKOCYTE ESTERASE ,URINE Small (NEGATIVE); UGLUCOSE Negative (NEGATIVE)
[2025-06-21 17:25] LABS: NITRITE, URINE POSITIVE (NEGATIVE)
[2025-06-21 17:27] LABS: ADD URINE CULTURE YES; SQUAMOUS EPITHELIAL CELL,UR Rare /HPF (None Seen)
[2025-06-21] MEDS: VANCOMYCIN 1 GM in IV D5W 250 ML IV ONE (17:35)
[2025-06-21] MEDS ORDERED: B CO1TAB6 PO (17:51)
[2025-06-21] MEDS ORDERED: DIPH25CA83 PO (17:51)
[2025-06-21] MEDS ORDERED: POLY17PO4 PO (17:51)
[2025-06-21] MEDS ORDERED: CEFT1VIA15 IV (17:51)
[2025-06-21] MEDS ORDERED: ONDANSETRON HCL/PF 4 MG/2 ML VIAL IVP PRN (18:00)
[2025-06-21] MEDS ORDERED: Z GUARD REMEDY 4 OZ OINT TP PRN (18:00)
[2025-06-21] MEDS ORDERED: DOSING PER PHARMACY-VANCOMYCIN IV XX PRN (18:00)
[2025-06-21] MEDS ORDERED: MAG HYDROX/AL HYDROX/SIMETH 30 ML UDC PO PRN (18:00)
[2025-06-21] MEDS ORDERED: ACETAMINOPHEN 325 MG TABLET PO PRN (18:00)
[2025-06-21] MEDS ORDERED: MAGNESIUM HYDROXIDE 30 ML UDC PO PRN (18:00)
[2025-06-21] MEDS: AZITHROMYCIN 500 MG in IV D5W 250 ML IV ONE (18:40)
[2025-06-21] MEDS: IV NS 0.9% 1,000 ML IV PRN (18:57)
[2025-06-21 20:00] VITALS: BP 125/78; TEMP 97.8; O2SAT 90
[2025-06-21] MEDS ORDERED: VANCOMYCIN 1 GM in IV D5W 250ml IV ONE (20:00)
[2025-06-21] MEDS: MEROPENEM 1 G in IV NS 0.9% 100 ML IV SCH (21:30)
[2025-06-21] MEDS ORDERED: LORAZEPAM INJ 2 MG/ML VIAL IM PRN (22:00)
[2025-06-21] MEDS: LORAZEPAM INJ 2 MG/ML VIAL IM PRN (22:51)
[2025-06-22] VITALS (11 sets, daily range): BP systolic 115–151; BP diastolic 70–123; TEMP 97.7–98.8; O2SAT 90–100
[2025-06-22] MEDS: ZOLPIDEM TARTRATE 5 MG TABLET PO PRN (01:34)
[2025-06-22] MEDS: PANTOPRAZOLE 40 MG TABLET.DR PO SCH (06:45)
[2025-06-22] MEDS: VANCOMYCIN 1 GM in IV D5W 250ml IV SCH (07:51)
[2025-06-22 08:00] LABS: PLATELET COUNT (AUTO) 190 K/uL (150-450); RED BLOOD CELL COUNT(AUTO) 5.00 MIL/uL (4.5-6.0); RED CELL DISTRIBUTION WIDTH 15.8 % (11.5-15.0); WHITE BLOOD COUNT (AUTO) 9.1 K/uL (4.3-11.0)
[2025-06-22 08:18] LABS: CALCIUM, SERUM 8.3 mg/dL (8.5-10.1); CREATININE 1.1 mg/dL (0.6-1.3); PHOSPHORUS 2.1 mg/dL (2.5-4.9); SODIUM SERUM 138.0 mmol/L (136-145); UREA NITROGEN, BLOOD 20.0 mg/dL (7-18)
[2025-06-22] MEDS: ENOXAPARIN SODIUM 40 MG/0.4 ML DISP.SYRIN SQ SCH (14:13)
[2025-06-22] MEDS ORDERED: MAGNESIUM HYDROXIDE 30 ML UDC PO PRN (16:00)
[2025-06-22] MEDS ORDERED: BISACODYL SUPP (10 MG) 10 MG/SUPP.RECT SUPP.RECT RC PRN (16:00)
[2025-06-22] MEDS ORDERED: NA PHOS,M-B/NA PHOS,DI-BA 1 EA ENEMA RC PRN (16:00)
[2025-06-22] MEDS ORDERED: LORAZEPAM 1 MG TABLET PO PRN (16:00)
[2025-06-22] MEDS ORDERED: ACETAMINOPHEN 325 MG TABLET PO PRN (16:00)
[2025-06-22] MEDS: IPRATROPIUM NEB FS 0.5 MG/2.5 ML AMPUL.NEB NEB SCH (16:04)
[2025-06-22] MEDS: ACETYLCYSTEINE 10% SOLN 400 MG/4 ML VIAL NEB SCH (16:04)
[2025-06-22] MEDS: ALBUTEROL HALF STRENGTH 1.25 MG/3 ML VIAL.NEB NEB SCH (16:04)
[2025-06-22] MEDS: GABAPENTIN 100 MG CAPSULE PO SCH (16:43)
[2025-06-22] MEDS: DIVALPROEX SODIUM 125 MG CAP.SPRINK PO SCH (16:43)
[2025-06-22] MEDS: APIXABAN 5 MG TABLET PO SCH (16:43)
[2025-06-22] MEDS: FERROUS SULFATE (325 MG) 325 MG/TAB TABLET PO SCH (16:43)
[2025-06-22] MEDS: OLANZAPINE 5 MG TABLET PO SCH (16:44)
[2025-06-22] MEDS: MEROPENEM 1 G in IV NS 0.9% 100 ML IV SCH (17:07)
[2025-06-22] MEDS: VITAMIN B COMP W-C 1 TAB TABLET PO SCH (17:25)
[2025-06-22] MEDS: CHOLECALCIFEROL 1,000 UNIT TABLET (VIT D3) PO SCH (17:25)
[2025-06-22] MEDS: Sodium Phosphate 15 MMOL in IV NS 0.9% 245 ML IV SCH (17:25)
[2025-06-22] MEDS ORDERED: AZITHROMYCIN 500 MG in IV D5W 250 ML IV SCH (18:00)
[2025-06-22] MEDS: TRAMADOL HCL 50 MG TABLET PO SCH (21:00)
[2025-06-22] MEDS: LEVETIRACETAM SOL (5 ML) 100 MG/ML UDC PO SCH (21:00)
[2025-06-22] MEDS: SENNOSIDES/DOCUSATE SODIUM 1 TAB TABLET PO SCH (21:00)
[2025-06-22] MEDS: ATORVASTATIN 10 MG TABLET PO SCH (21:20)
[2025-06-22] MEDS: POLYETHYLENE GLYCOL 3350 17 GM POWD.PACK PO SCH (21:20)
[2025-06-22] MEDS: MIRTAZAPINE 15 MG TABLET PO SCH (21:21)
[2025-06-22] MEDS: LISINOPRIL (5MG) 5 MG TABLET PO SCH (21:27)
[2025-06-22] MEDS ORDERED: LEVETIRACETAM (500MG) 500 MG/5 ML VIAL IV ONE (22:26)
[2025-06-22] MEDS: LEVETIRACETAM (500MG) 1,000 MG in IV NS 0.9% 90 ML IV SCH (22:31)
[2025-06-23] VITALS (14 sets, daily range): BP systolic 116–141; BP diastolic 68–82; TEMP 97.7–98.4; O2SAT 95–100
[2025-06-23 07:08] LABS: PLATELET COUNT (AUTO) 201 K/uL (150-450); RED BLOOD CELL COUNT(AUTO) 4.48 MIL/uL (4.5-6.0); RED CELL DISTRIBUTION WIDTH 15.9 % (11.5-15.0); WHITE BLOOD COUNT (AUTO) 5.8 K/uL (4.3-11.0)
[2025-06-23 07:49] LABS: CALCIUM, SERUM 8.4 mg/dL (8.5-10.1); CREATININE 0.9 mg/dL (0.6-1.3); PHOSPHORUS 2.8 mg/dL (2.5-4.9); SODIUM SERUM 141.0 mmol/L (136-145); UREA NITROGEN, BLOOD 20.0 mg/dL (7-18)
[2025-06-23] MEDS ORDERED: FUROSEMIDE 40 MG TABLET PO SCH (09:00)
[2025-06-23] MEDS ORDERED: ACETAMINOPHEN 650 MG SUPP.RECT RC PRN (10:00)
[2025-06-23] MEDS ORDERED: OLANZAPINE ZYDIS 5 MG TAB.RAPDIS SL SCH (10:10)
[2025-06-23] MEDS: OLANZAPINE ZYDIS 5 MG TAB.RAPDIS SL SCH (10:11)
[2025-06-23] MEDS: PANTOPRAZOLE 40 MG VIAL IV SCH (10:12)
[2025-06-23] MEDS ORDERED: MORPHINE SULFATE INJ 2 MG/ML DISP.SYRIN IV PRN (10:30)
[2025-06-23] MEDS: ENOXAPARIN SODIUM 80 MG/0.8 ML DISP.SYRIN SQ SCH (10:34)
[2025-06-23] MEDS ORDERED: ACETAMINOPHEN 650 MG/SUPP.RECT RC PRN (11:00)
[2025-06-23] MEDS: VALPROATE 500 MG in IV D5W 100 ML IV SCH (11:30)
[2025-06-24] VITALS (18 sets, daily range): BP systolic 118–140; BP diastolic 74–88; TEMP 97.9–98.6; O2SAT 95–100
[2025-06-24 07:31] LABS: CALCIUM, SERUM 8.3 mg/dL (8.5-10.1); CREATININE 1.0 mg/dL (0.6-1.3); PHOSPHORUS 2.4 mg/dL (2.5-4.9); SODIUM SERUM 144.0 mmol/L (136-145); UREA NITROGEN, BLOOD 19.0 mg/dL (7-18)
[2025-06-24 07:46] LABS: PLATELET COUNT (AUTO) 212 K/uL (150-450); RED BLOOD CELL COUNT(AUTO) 4.36 MIL/uL (4.5-6.0); RED CELL DISTRIBUTION WIDTH 15.3 % (11.5-15.0); WHITE BLOOD COUNT (AUTO) 4.5 K/uL (4.3-11.0)
[2025-06-24] MEDS: HYDROMORPHONE 1 MG/1 ML DISP.SYRIN IV PRN (09:48)
[2025-06-24] MEDS: FUROSEMIDE 40 MG/4 ML VIAL IV SCH (10:10)
[2025-06-24] MEDS: LORAZEPAM INJ 2 MG/ML VIAL IM PRN (10:35)
[2025-06-24] MEDS: OLANZAPINE ZYDIS 5 MG TAB.RAPDIS SL SCH (16:46)
[2025-06-24] MEDS: Sodium Phosphate 15 MMOL in IV NS 0.9% 245 ML IV SCH (18:48)
[2025-06-25] VITALS (14 sets, daily range): BP systolic 119–135; BP diastolic 70–92; TEMP 97.3–98.6; O2SAT 97–100
[2025-06-25 07:53] LABS: PLATELET COUNT (AUTO) 220 K/uL (150-450); RED BLOOD CELL COUNT(AUTO) 4.35 MIL/uL (4.5-6.0); RED CELL DISTRIBUTION WIDTH 15.2 % (11.5-15.0); WHITE BLOOD COUNT (AUTO) 4.1 K/uL (4.3-11.0)
[2025-06-25 07:57] LABS: CALCIUM, SERUM 8.5 mg/dL (8.5-10.1); CREATININE 0.9 mg/dL (0.6-1.3); PHOSPHORUS 3.2 mg/dL (2.5-4.9); SODIUM SERUM 144.0 mmol/L (136-145); UREA NITROGEN, BLOOD 17.0 mg/dL (7-18)
[2025-06-25] MEDS: POTASSIUM CL. PREMIX PERIPHER. 50 ML IV SCH (09:20)
[2025-06-26] VITALS (14 sets, daily range): BP systolic 124–146; BP diastolic 54–77; TEMP 98.1–98.7; O2SAT 95–100
[2025-06-26 08:27] LABS: PLATELET COUNT (AUTO) 250 K/uL (150-450); RED BLOOD CELL COUNT(AUTO) 4.67 MIL/uL (4.5-6.0); RED CELL DISTRIBUTION WIDTH 15.5 % (11.5-15.0); WHITE BLOOD COUNT (AUTO) 4.7 K/uL (4.3-11.0)
[2025-06-26 08:50] LABS: CALCIUM, SERUM 8.6 mg/dL (8.5-10.1); CREATININE 0.9 mg/dL (0.6-1.3); PHOSPHORUS 2.8 mg/dL (2.5-4.9); SODIUM SERUM 146.0 mmol/L (136-145); UREA NITROGEN, BLOOD 13.0 mg/dL (7-18)
[2025-06-27] VITALS (8 sets, daily range): BP systolic 128–160; BP diastolic 78–87; TEMP 97.9–98.2; O2SAT 96–100
[2025-06-27 17:24] LABS: PLATELET COUNT (AUTO) 290 K/uL (150-450); RED BLOOD CELL COUNT(AUTO) 4.90 MIL/uL (4.5-6.0); RED CELL DISTRIBUTION WIDTH 15.7 % (11.5-15.0); WHITE BLOOD COUNT (AUTO) 5.6 K/uL (4.3-11.0)
[2025-06-27 17:48] LABS: CALCIUM, SERUM 8.9 mg/dL (8.5-10.1); CREATININE 0.8 mg/dL (0.6-1.3); PHOSPHORUS 2.9 mg/dL (2.5-4.9); SODIUM SERUM 142.0 mmol/L (136-145); UREA NITROGEN, BLOOD 13.0 mg/dL (7-18)
[2025-06-28] VITALS (16 sets, daily range): BP systolic 115–134; BP diastolic 67–98; TEMP 97.3–98.4; O2SAT 94–100
[2025-06-28 07:29] LABS: CALCIUM, SERUM 9.1 mg/dL (8.5-10.1); CREATININE 0.9 mg/dL (0.6-1.3); SODIUM SERUM 146.0 mmol/L (136-145); UREA NITROGEN, BLOOD 15.0 mg/dL (7-18)
[2025-06-28] MEDS: JEVITY 1.2 CAL 1,000 ML BOTTLE GT PRN (13:17)
[2025-06-28] MEDS: IV D5/0.45 NACL 1,000 ML IV SCH (20:00)
[2025-06-29] VITALS (14 sets, daily range): BP systolic 125–149; BP diastolic 71–84; TEMP 97.5–98.2; O2SAT 97–100
[2025-06-29 05:59] LABS: PLATELET COUNT (AUTO) 250 K/uL (150-450); RED BLOOD CELL COUNT(AUTO) 5.05 MIL/uL (4.5-6.0); RED CELL DISTRIBUTION WIDTH 15.6 % (11.5-15.0); WHITE BLOOD COUNT (AUTO) 5.6 K/uL (4.3-11.0)
[2025-06-29 06:10] LABS: CALCIUM, SERUM 8.6 mg/dL (8.5-10.1); CREATININE 0.9 mg/dL (0.6-1.3); SODIUM SERUM 144.0 mmol/L (136-145); UREA NITROGEN, BLOOD 13.0 mg/dL (7-18)
[2025-06-29] MEDS: POTASSIUM CL. PREMIX PERIPHER. 50 ML IV SCH (09:27)
[2025-06-29] MEDS ORDERED: POTASSIUM CL. PREMIX PERIPHER. 50 ML IV SCH (09:30)
[2025-06-30] VITALS (14 sets, daily range): BP systolic 135–142; BP diastolic 82–92; TEMP 97.8–98.2; O2SAT 94–100
[2025-06-30 07:42] LABS: PLATELET COUNT (AUTO) 282 K/uL (150-450); RED BLOOD CELL COUNT(AUTO) 4.80 MIL/uL (4.5-6.0); RED CELL DISTRIBUTION WIDTH 15.3 % (11.5-15.0); WHITE BLOOD COUNT (AUTO) 4.8 K/uL (4.3-11.0)
[2025-06-30 07:54] LABS: INR 1.48 (0.91-1.10)
[2025-06-30 08:07] LABS: CALCIUM, SERUM 8.8 mg/dL (8.5-10.1); CREATININE 0.8 mg/dL (0.6-1.3); UREA NITROGEN, BLOOD 11.0 mg/dL (7-18)
[2025-06-30 08:22] LABS: SODIUM SERUM 145.0 mmol/L (136-145)
[2025-06-30] MEDS: POTASSIUM CL. PREMIX PERIPHER. 50 ML IV SCH (10:13)
[2025-06-30] MEDS: IV D5/0.45 NACL 1,000 ML IV PRN (22:51)
[2025-07-01] VITALS (11 sets, daily range): BP systolic 130–146; BP diastolic 62–91; TEMP 98–98.5; O2SAT 94–100
[2025-07-01 07:08] LABS: PLATELET COUNT (AUTO) 347 K/uL (150-450); RED BLOOD CELL COUNT(AUTO) 5.25 MIL/uL (4.5-6.0); RED CELL DISTRIBUTION WIDTH 15.3 % (11.5-15.0); WHITE BLOOD COUNT (AUTO) 7.5 K/uL (4.3-11.0)
[2025-07-01 07:23] LABS: CALCIUM, SERUM 9.1 mg/dL (8.5-10.1); CREATININE 0.8 mg/dL (0.6-1.3); SODIUM SERUM 142.0 mmol/L (136-145); UREA NITROGEN, BLOOD 10.0 mg/dL (7-18)
[2025-07-02] VITALS (18 sets, daily range): BP systolic 108–121; BP diastolic 60–75; TEMP 97–97.7; O2SAT 97–100
[2025-07-02] MEDS ORDERED: LEVETIRACETAM SOL (5 ML) 100 MG/ML UDC GT SCH (09:00)
[2025-07-02] MEDS: LEVETIRACETAM (500MG) 500 MG in IV NS 0.9% 100 ML IV SCH (10:22)
[2025-07-02] MEDS ORDERED: PHYTONADIONE INJ 10 MG/1 ML AMPUL SQ ONE (18:30)
[2025-07-03] VITALS (15 sets, daily range): BP systolic 124–150; BP diastolic 77–92; TEMP 97.2–98.1; O2SAT 96–100
[2025-07-03 06:24] LABS: INR 1.61 (0.91-1.10)
[2025-07-03 09:45] LABS: PLATELET COUNT (AUTO) 353 K/uL (150-450); RED BLOOD CELL COUNT(AUTO) 4.96 MIL/uL (4.5-6.0); RED CELL DISTRIBUTION WIDTH 15.5 % (11.5-15.0); WHITE BLOOD COUNT (AUTO) 4.8 K/uL (4.3-11.0)
[2025-07-03 09:53] LABS: CALCIUM, SERUM 9.1 mg/dL (8.5-10.1); CREATININE 1.0 mg/dL (0.6-1.3); SODIUM SERUM 139.0 mmol/L (136-145); UREA NITROGEN, BLOOD 10.0 mg/dL (7-18)
[2025-07-03] MEDS: POTASSIUM CL. PREMIX PERIPHER. 50 ML IV SCH (15:16)
[2025-07-04] VITALS (17 sets, daily range): BP systolic 119–146; BP diastolic 81–100; TEMP 97.6–98.1; O2SAT 96–100
[2025-07-04 05:49] LABS: PLATELET COUNT (AUTO) 376 K/uL (150-450); RED BLOOD CELL COUNT(AUTO) 4.64 MIL/uL (4.5-6.0); RED CELL DISTRIBUTION WIDTH 15.0 % (11.5-15.0); WHITE BLOOD COUNT (AUTO) 4.5 K/uL (4.3-11.0)
[2025-07-04 06:03] LABS: CALCIUM, SERUM 8.7 mg/dL (8.5-10.1); CREATININE 0.8 mg/dL (0.6-1.3); PHOSPHORUS 2.6 mg/dL (2.5-4.9); SODIUM SERUM 139.0 mmol/L (136-145); UREA NITROGEN, BLOOD 10.0 mg/dL (7-18)
[2025-07-04 06:04] LABS: INR 1.63 (0.91-1.10)
[2025-07-04] MEDS ORDERED: PHARMACY TO CHANGE PO MEDS TO GT/NG XX PRN (19:00)
[2025-07-04] MEDS: SENNOSIDES/DOCUSATE SODIUM 1 TAB TABLET GT SCH (20:09)
[2025-07-04] MEDS: OLANZAPINE ZYDIS 5 MG TAB.RAPDIS GT SCH (20:09)
[2025-07-04] MEDS: LISINOPRIL (5MG) 5 MG TABLET GT SCH (21:23)
[2025-07-04] MEDS: ATORVASTATIN 10 MG TABLET NG SCH (21:24)
[2025-07-04] MEDS: MIRTAZAPINE 15 MG TABLET GT SCH (21:24)
[2025-07-05] VITALS (8 sets, daily range): BP systolic 122–137; BP diastolic 70–91; TEMP 97.6–98.6; O2SAT 95–100
[2025-07-05] MEDS: FERROUS SULFATE (325 MG) 325 MG/TAB TABLET GT SCH (09:01)
[2025-07-05] MEDS: JEVITY 1.2 CAL 1,000 ML BOTTLE GT SCH (09:13)
[2025-07-05] MEDS: APIXABAN 5 MG TABLET PO SCH (10:19)
[2025-07-05] MEDS ORDERED: JEVITY 1.2 CAL 1,000 ML BOTTLE GT SCH (16:38)
== END 2025-07-05 17:02 | DRG 871 ==
LOC: ER 16:30 → TELE1 17:25 → MEDSG1 06-24 09:38
PROVIDERS: ADMIT Student in an Organized Health Care Education/Training Program; ATTEND Internal Medicine
PROC: 0DH63UZ Insertion of Feeding Device into Stomach, Percutaneous Approach (ICD-10-PCS; principal; 2025-06-29 18:00)
PROC: 0DH63UZ Insertion of Feeding Device into Stomach, Percutaneous Approach (ICD-10-PCS; 2025-07-04 08:00)
DX: A41.9 Sepsis, unspecified organism (principal); G93.41 Metabolic encephalopathy; E44.1 Mild protein-calorie malnutrition; F20.0 Paranoid schizophrenia; N39.0 Urinary tract infection, site not specified; Z43.1 Encounter for attention to gastrostomy; F02.83 Dementia in other diseases classified elsewhere, unspecified severity, with mood disturbance; F01.53 Vascular dementia, unspecified severity, with mood disturbance; K29.70 Gastritis, unspecified, without bleeding; B96.20 Unspecified Escherichia coli [E. coli] as the cause of diseases classified elsewhere; D64.9 Anemia, unspecified; E78.5 Hyperlipidemia, unspecified; F32.A Depression, unspecified; I10 Essential (primary) hypertension; K21.9 Gastro-esophageal reflux disease without esophagitis; N40.0 Benign prostatic hyperplasia without lower urinary tract symptoms; R13.10 Dysphagia, unspecified; Z79.01 Long term (current) use of anticoagulants; Z86.718 Personal history of other venous thrombosis and embolism; Z88.0 Allergy status to penicillin; R62.7 Adult failure to thrive; F41.9 Anxiety disorder, unspecified; G40.909 Epilepsy, unspecified, not intractable, without status epilepticus; G20.A1 Parkinson's disease without dyskinesia, without mention of fluctuations; Z68.23 Body mass index [BMI] 23.0-23.9, adult; F39 Unspecified mood [affective] disorder; F29 Unspecified psychosis not due to a substance or known physiological condition; F25.9 Schizoaffective disorder, unspecified; J44.9 Chronic obstructive pulmonary disease, unspecified
CPT/HCPCS: 31720; 36415; 43235; 43246; 43761; 70450-TC; 71045-TC; 74021; 74230-TC; 80048-TC; 80076-TC; 80202-TC; 81001; 82962-TC; 83605-TC; 83735-TC; 84100-TC; 84443-TC; 85025-TC; 85027-TC; 85730-TC; 87040-TC; 87081-TC; 87086-TC; 87186-TC; 92526; 92611; 93971-TC; 94760-TC; 94762-TC; 94799-TC; A4223; A6213; A6403; A9563; G0378; J0456; J0690; J1171; J1650; J1938; J1953; J2060; J2185; J2470; J2704; J3373; J3430; J3480; J3490; J7030; J7040; J7050; J7060; J7120